=== PATIENT | female | born 1945 | race Caucasian/White ===

== ENCOUNTER → 2016-07-25 | Outpatient (CLI) | payer OTHER ==
[~2016-07-25] MED LIST: ACET-1256 PO; ASCO500T3 PO; ASPI325T39 PO; CALC500C70 PO; CALCTAB5 PO; CHOL20009 PO; CYAN500T13 PO; LEVO100T7 PO; PRLSR20 PO; ZNTT/150 PO
[2016-07-25 15:09] LABS: BLOOD UREA NITROGEN 14 mg/dl (7-18); BUN/CREATININE RATIO 19.6 (10-20); CARBON DIOXIDE 28 mmol/L (21-32); CHLORIDE 105 mmol/L (98-107); CREATININE 0.71 mg/dl (0.60-1.20); GLUCOSE 92 mg/dl (70-99); POTASSIUM 3.9 mmol/L (3.5-5.1); SODIUM 139 mmol/L (136-145)
[2016-07-25 15:15] LABS: CALCIUM 10.4 mg/dl (8.5-10.1)
[2016-07-25 15:20] LABS: ALB/GLOB RATIO 1.2 (0.9-2); ALKALINE PHOSPHATASE 95 U/L (45-117); ALT/SGPT 23 U/L (12-78); AST/SGOT 18 U/L (15-37); RHEUMATOID FACTOR < 10.0 U/mL (0-15)
[2016-07-25 16:15] LABS: LYME DISEASE AB IGG NEG (NEG); LYME DISEASE AB IGM NEG (NEG)
--- NOTE | 2016-08-02 06:48 | CODING QUERY MEDICAL NECESSITY ---
SUPPORTING DIAGNOSIS NEEDED Dr. Maria, A supporting diagnosis is required for the test/procedure performed on this patient in order for us to be reimbursed by the patient's insurance. Please provide a supporting diagnosis for the following test/procedure listed below next to the test name along with your signature. *If there is no additional diagnosis for this patient that would support the following test/procedure please document that below next to the test/procedure. Test(s)/Procedure(s) that require a supporting diagnosis: * ([id number]) VITAMIN D ASSAY DIAGNOSIS: DATE OF SERVICE: 07/25/16 Provider Signature: Date: Thank you Herman Pearson [facility] Information Management Once completed, please kindly fax back to [phone] For questions please call [phone]
== END | disposition home or self-care (01) ==
LOC: C.LABBC 11:20
PROVIDERS: ATTEND Internal Medicine
DX: M15.9 Polyosteoarthritis, unspecified (principal); M85.80 Other specified disorders of bone density and structure, unspecified site

== ENCOUNTER → 2016-07-27 | Outpatient (CLI) | payer OTHER | END | disposition home or self-care (01) | LOC: C.LABBFT 17:51 | PROVIDERS: ATTEND Internal Medicine | DX: E83.52 Hypercalcemia (principal); R19.7 Diarrhea, unspecified; R10.9 Unspecified abdominal pain ==

== ENCOUNTER → 2016-08-29 | Outpatient (CLI) | payer OTHER | END | disposition home or self-care (01) | LOC: C.MAMM 10:32 | PROVIDERS: ATTEND Internal Medicine | DX: Z78.0 Asymptomatic menopausal state (principal); M85.89 Other specified disorders of bone density and structure, multiple sites; E21.3 Hyperparathyroidism, unspecified ==

== ENCOUNTER → 2016-09-18 | Outpatient (CLI) | payer OTHER ==
--- NOTE | 2016-09-18 19:36 | DIAGNOSTIC IMAGING REPORT ---
NUCLEAR MEDICINE PARATHYROID WITH SPECT IMAGING CLINICAL HISTORY: E21.3 Hyperparathyroidism COMPARISON STUDY: No previous studies for comparison. FINDINGS: The patient was injected with 21.6 mCi of technetium 99m Cardiolite. 15 minute and 3 hour delayed imaging was performed. SPECT imaging was acquired. There are no foci of increased activity viewed as suspicious for a parathyroid adenoma. IMPRESSION: This examination fails to localize the suspected parathyroid adenoma Electronically signed by: Sonny Chance M.D. 09/18/2016 7:34 PM Dictated Date/Time: 09/18/2016 7:30 PM
== END | disposition home or self-care (01) ==
LOC: C.NUCL 14:48
PROVIDERS: ATTEND Internal Medicine Endocrinology, Diabetes & Metabolism
DX: E21.3 Hyperparathyroidism, unspecified (principal)

== ENCOUNTER → 2016-10-25 | Outpatient (CLI) | payer OTHER ==
[2016-10-25 17:38] LABS: CALCIUM 10.4 mg/dl (8.5-10.1); CREATININE 0.77 mg/dl (0.60-1.20)
== END | disposition home or self-care (01) ==
LOC: C.LABBFT 12:03
PROVIDERS: ATTEND Internal Medicine Endocrinology, Diabetes & Metabolism
DX: E03.9 Hypothyroidism, unspecified (principal); M85.80 Other specified disorders of bone density and structure, unspecified site

== ENCOUNTER → 2016-10-31 | Day surgery (SDC) | payer OTHER ==
[~2016-10-31] VITALS: Ht 152.4 cm; Wt 75.0 kg
[~2016-10-31] MED LIST changes: +ZOLEDRONIC ACID INJ 5 MG in EMPTY BAG 0 ML IV SCH
[2016-10-31 12:35] VITALS: BP 138/68; PULSE 75; TEMP 36.4; O2SAT 97; Ht 152.4 cm; Wt 75.0 kg
[2016-10-31 16:01] VITALS: BP 142/70; PULSE 72; TEMP 36.5
== END | disposition home or self-care (01) ==
LOC: C.MTU 12:10
PROVIDERS: ATTEND Internal Medicine Endocrinology, Diabetes & Metabolism
DX: M81.0 Age-related osteoporosis without current pathological fracture (principal)

== ENCOUNTER → 2016-11-20 | Outpatient (CLI) | payer OTHER ==
[~2016-11-20] MED LIST changes: -CALCTAB5 PO; -PRLSR20 PO; -ZOLEDRONIC ACID INJ 5 MG in EMPTY BAG 0 ML IV SCH
[2016-11-20 16:54] LABS: URINE APPEARANCE CLEAR (CLEAR); URINE BILIRUBIN NEG (NEG); URINE COLOR YELLOW; URINE EPITHELIAL CELL AUTO 20-30 /lpf (0-5); URINE NITRITE NEG (NEG); URINE PH 5.5 (4.5-7.5); URINE SPECIFIC GRAVITY 1.013 (1.000-1.030); UROBILINOGEN NEG (NEG); ZZUR CULT IF INDIC CLEAN CATCH NO
[2016-11-20 17:00] LABS: MANUAL MICROSCOPIC REQUIRED? NO; REVIEW REQ? NO
== END | disposition home or self-care (01) ==
LOC: C.LABBFT 10:16
PROVIDERS: ATTEND Internal Medicine Endocrinology, Diabetes & Metabolism
DX: E21.3 Hyperparathyroidism, unspecified (principal)

== ENCOUNTER → 2017-04-02 | Outpatient (CLI) | payer OTHER ==
--- NOTE | 2017-04-03 14:38 | MAMMOGRAPHY REPORT ---
BILATERAL DIGITAL SCREENING MAMMOGRAM TOMOSYNTHESIS WITH CAD: 04/02/2017 CLINICAL HISTORY: Routine screening. TECHNIQUE: Breast tomosynthesis in addition to standard 2D mammography was performed. Current study was also evaluated with a Computer Aided Detection (CAD) system. COMPARISON: Comparison is made to exams dated: 03/22/2015 mammogram, 03/27/2016 mammogram, 01/05/2014 mammogram, 06/02/2013 mammogram, 11/25/2012 mammogram, and 07/24/2011 mammogram - [facility]. BREAST COMPOSITION: The tissue of both breasts is almost entirely fatty. FINDINGS: There is a new 7 mm focal asymmetry in the lower inner anterior right breast. Although th is could represent benign fat necrosis, additional spot compression tomosynthesis views and possible ultrasound are recommended. There is a stable intramammary lymph node in the upper outer middle one third of the right breast. No other suspicious mass, architectural distortion or cluster of microcalcifications is seen. IMPRESSION: ACR BI-RADS CATEGORY 0: INCOMPLETE EVALUATION: NEED ADDITIONAL IMAGING EVALUATION The new 7 mm focal asymmetry in the lower inner anterior right breast needs additional evaluation. The patient will be called to schedule an appointment. Approximately 10% of breast cancers are not detected with mammography. A negative mammographic report should not delay biopsy if a clinically suggestive mass is present. Brandie Valdez M.D. ay/:04/02/2017 16:59:35 Er Registrar: Pasquale CHIRINOS)(Dez), [facility] letter sent: Addl Imaging 0 BI-RADS Code: ACR BI-RADS Category 0: Incomplete Evaluation: Need Additional Imaging Evaluation
== END | disposition home or self-care (01) ==
LOC: C.MAMM 13:24
PROVIDERS: ATTEND Internal Medicine
DX: Z12.31 Encounter for screening mammogram for malignant neoplasm of breast (principal); N64.9 Disorder of breast, unspecified

== ENCOUNTER → 2017-04-02 | Outpatient (CLI) | payer OTHER ==
[2017-04-02 15:26] LABS: BASO ABS # 0.06 K/uL (0-0.2); EOS % 1.4 %; EOS ABS # 0.09 K/uL (0-0.5); IG# 0.01 K/uL (0.00-0.02); LYMPH % 27.8 %; LYMPH ABS # 1.73 K/uL (1.2-3.4); MEAN CELL VOLUME 93.2 fL (80-100); MEAN CORPUSCULAR HEMOGLOBIN 31.8 pg (25-34); MEAN CORPUSCULAR HGB CONC 34.1 g/dl (32-36); MEAN PLATELET VOLUME 9.9 fL (7.4-10.4); MONO ABS # 0.56 K/uL (0.11-0.59); NEUT % 60.6 %; NEUT ABS # 3.77 K/uL (1.4-6.5); PLATELET COUNT 297 K/uL (130-400); RED CELL DISTRIBUTION WIDTH CV 13.1 % (11.5-14.5); RED CELL DISTRIBUTION WIDTH SD 44.7 fL (36.4-46.3); WHITE BLOOD COUNT 6.22 K/uL (4.8-10.8)
== END | disposition home or self-care (01) ==
LOC: C.LAB1850 14:04
PROVIDERS: ATTEND Physician Assistant
DX: L65.9 Nonscarring hair loss, unspecified (principal)

== ENCOUNTER → 2017-04-09 | Outpatient (CLI) | payer OTHER ==
--- NOTE | 2017-04-09 09:12 | DIAGNOSTIC IMAGING REPORT ---
R KNEE 1 OR 2 VIEWS ROUTINE CLINICAL HISTORY: Right knee pain and following recent fall. COMPARISON: Right knee radiographs January 25, 2016. FINDINGS: No acute fracture is identified. A small right knee joint effusion is noted. There is marked medial compartment joint space narrowing with moderate osteophytosis. There is also patellofemoral compartment joint space narrowing with osteophytosis. IMPRESSION: 1. No acute fracture. 2. Small right knee joint effusion. 3. Severe medial compartment osteoarthritis and moderate patellofemoral compartment osteoarthritis. Electronically signed by: Herb Shelton M.D. 04/09/2017 9:11 AM Dictated Date/Time: 04/09/2017 9:09 AM
== END | disposition home or self-care (01) ==
LOC: C.RADBC 08:49
PROVIDERS: ATTEND Family Medicine Adult Medicine
DX: M25.561 Pain in right knee (principal); M17.11 Unilateral primary osteoarthritis, right knee

== ENCOUNTER → 2017-04-17 | Outpatient (CLI) | payer OTHER ==
[~2017-04-17] MED LIST changes: +RANI150T85 PO; -ZNTT/150 PO
--- NOTE | 2017-04-17 13:30 | MAMMOGRAPHY REPORT ---
UNILATERAL RIGHT DIGITAL DIAGNOSTIC MAMMOGRAM TOMOSYNTHESIS AND TARGETED RIGHT ULTRASOUND: 04/17/2017 CLINICAL HISTORY: 71-year-old woman called back from screening mammography for a focal asymmetry in t he lower inner anterior right breast. Patient denies any known trauma of the right breast prior to t he screening mammogram. No visible skin bruising or lesions are identified. TECHNIQUE: Spot compression right CC and MLO tomosynthesis images were obtained. COMPARISON: Comparison is made to exams dated: 04/02/2017 mammogram, 03/27/2016 mammogram, 03/22/2015 m ammogram, 01/05/2014 mammogram, 06/02/2013 mammogram, and 12/02/2012 ultrasound - [facility]. BREAST COMPOSITION: The tissue of the right breast is almost entirely fatty. FINDINGS: The spot compression views of the right lower inner quadrant demonstrate a mixed density f ocal asymmetry measuring 5.8 x 4.9 x 3.4 mm, in the approximate 2:00 to 3:00 anterior right breast. No associated architectural distortion or calcification. Further characterization with ultrasound wa s performed. Targeted ultrasound performed in the right lower inner quadrant demonstrates a mixed echogenicity hyp erechoic and height both to isoechoic solid appearing mass measuring 7.9 x 4.8 x 7.8 mm. No signific ant increased vascularity. Although this could represent fat necrosis it is indeterminate and given no clinical history of trauma definitive characterization with ultrasound guided core biopsy is recom mended. IMPRESSION: ACR BI-RADS CATEGORY 4: SUSPICIOUS, TARGETED ULTRASOUND ACR BI-RADS CATEGORY 4: SUSPICIO US A new, persistent mixed density focal asymmetry in the lower inner anterior right breast corresponds with a mixed echogenicity solid-appearing 7.9 mm mass on ultrasound identified in the 3:[address] Definitive characterization with ultrasound guided core needle biopsy is recommended. These results and recommend addition were discussed with the patient at the time of the exam. She te ntatively scheduled the right breast biopsy prior to leaving our department. Approximately 10% of breast cancers are not detected with mammography. A negative mammographic report should not delay biopsy if a clinically suggestive mass is present. Brandie Valdez M.D. ay/:04/17/2017 11:55:52 Criminal Research Specialist: Ruth Ann SUTTON(Ary)(Dez), [facility] letter sent: Abnormal 4/5 BI-RADS Code: ACR BI-RADS Category 4: Suspicious Ultrasound BI-RADS: ACR BI-RADS Category 4: Suspici ous
== END | disposition home or self-care (01) ==
LOC: C.MAMM 11:02
PROVIDERS: ATTEND Internal Medicine
DX: N64.89 Other specified disorders of breast (principal); N63.12 Unspecified lump in the right breast, upper inner quadrant; Z91.040 Latex allergy status

== ENCOUNTER → 2017-05-14 | Outpatient (CLI) | payer OTHER ==
--- NOTE | 2017-05-14 11:05 | Discharge Instructions ---
Discharge Instructions Procedure Procedure Date: May 14, 2017. Reason for visit: Right Mass. Discharge Discharge Date: May 14, 2017. Discharge Diagnosis: post right breast ultrasound guided core biopsy Medications Restart Stopped Medication(s): May continue with Aspirin tomorrow as per usual Instructions Activity Recommendations: Additional Limitations (see below) Return to School/Work: no limitations Recommended Home Diet: No Limitations Provider Instructions: ACTIVITY RECOMMENDATIONS: * No lifting, pushing, pulling or exercising the affected side for three days. RETURN TO SCHOOL/WORK: * You may return to work/school after the procedure, but do not perform any strenuous activities for 24 to 48 hours. MEDICATIONS: * Tylenol (two 325 mg) every four to six hours if needed for mild pain (if not allergic to Tylenol). DIET: * Resume previous diet. SPECIAL CARE INSTRUCTIONS: * Keep biopsy site dry for 24 hours. May shower after 24 hours, but do not soak (bathe) incision. * May remove Tegaderm (plastic patch) tomorrow AFTER showering. * Leave the steri-strips on for one week. Allow the steri-strips to fall off by themselves. If not off after one week, you may remove them. You may place a Bandaid crosswise over the strips, if desired. * Apply ice 10 minutes on and 10 minutes off as needed. * Wear a bra at bedtime to sleep more comfortably for 2-3 days. * Your referring physician should have the results after approximately 5 to 7 business days. * Call for unusual bleeding, fever, drainage, etc or if you have any questions call [phone] during normal business hours or after hours call Dr Valdez, . FOLLOW UP VISIT: Follow-up with Referring Physician as scheduled. Allergies Coded Allergies: Penicillins (Verified Allergy, Severe, RESP DIFFICULTY, 10/31/16) Morphine (Verified Allergy, Mild, ITCHING, 10/31/16) Prednisone (Verified Adverse Reaction, Intermediate, HTN, 10/31/16) Bacitracin (Verified Adverse Reaction, Unknown, DOESN'T HELP, 10/31/16) Neomycin (Verified Adverse Reaction, Unknown, DOESN'T HELP, 10/31/16) Polymyxin B (Verified Adverse Reaction, Unknown, DOESN'T HELP, 10/31/16) Kaushal Aleman Recommendations: Call your doctor if: * Temperature above 101 degrees * Pain not relieved by pain medicine ordered * There is increased drainage or redness from any incision * You have any unanswered questions or concerns. Your Doctors Instructions noted above were prepared by provider Brandie Valdez. Patient Signature Section: Patient Instructions Signature Page Veronica Cerdaen Patient (or Guardian) Signature/Date: I have read and understand the instructions given to me by my caregivers. Caregiver/RN/Doctor Signature/Date: The above-named patient and/or guardian has received patient instructions on this date. + Original Patient Signature Page (only) stays with chart. Please make copy for patient.
--- NOTE | 2017-05-14 15:39 | MAMMOGRAPHY REPORT ---
ULTRASOUND GUIDED BIOPSY RIGHT BREAST: 05/14/2017 CLINICAL HISTORY: Subtle mixed density/mixed echogenicity solid-appearing 7.9 mm mass in the 3:00 rig ht breast. Patient presents for ultrasound-guided core needle biopsy. COMPARISON: Comparison is made to exams dated: 04/17/2017 mammogram, 04/02/2017 mammogram, 04/17/2017 ult rasound, and 03/22/2015 mammogram - [facility]. PATIENT CONSENT: The procedure, risks and benefits were discussed with the patient and informed conse nt was obtained both verbally and in writing. Specific risks to this procedure include: bleeding, in fection, puncture of adjacent structure, nontarget biopsy, sampling error, pain, metal allergy and me dication reaction. PROCEDURE DESCRIPTION: A time out was performed and the right breast was agreed as the site of biopsy . The skin was prepped and draped in the usual sterile fashion. The subtle, mixed echogenicity 7.9 mm solid-appearing mass in the 3:00 right breast was chosen as the target for biopsy. Subcutaneous and intraparenchymal 1% buffered lidocaine, with and without epinephrine, was administered as local anest hesia. A skin incision was made. Through the incision, 5 samples were taken with a 14 gauge Achieve biopsy device. A ribbon shaped metallic marker was placed at the biopsy site. Hemostasis was achieved after manual compression. The patient tolerated the procedure well and there was no immediate compli cation. The samples were sent to the pathology department in an appropriately labeled container. Postprocedure right CC and ML tomosynthesis images were obtained. There is a new ribbon-shaped biops y marker clip in the 3:00 anterior right breast, at the site of the biopsied mixed density mammograph ic mass, corresponding to the subtle mixed echogenicity mass seen on ultrasound. No significant post biopsy hematoma identified. Pathology is pending. IMPRESSION: ULTRASOUND GUIDED BIOPSY Status post ultrasound-guided core biopsy of a subtle mixed density/mixed echogenicity 7.9 mm mass in the 3:00 right breast, with biopsy marker clip placed at the site. The patient will receive notification of the biopsy results from her referring physician. Brandie Valdez M.D. ay/:05/14/2017 11:15:57 Leather Splitter: Ruth Ann CHIRINOS)(Dez), [facility]
--- NOTE | 2017-05-14 15:42 | MAMMOGRAPHY REPORT ---
UNILATERAL RIGHT DIGITAL DIAGNOSTIC MAMMOGRAM TOMOSYNTHESIS: 05/14/2017 CLINICAL HISTORY: Status post ultrasound-guided core biopsy of a subtle mixed echogenicity mass in th e 3:00 right breast. Please refer to the report from right breast ultrasound-guided core biopsy performed at the same time for full detail. IMPRESSION: POST PROCEDURE IMAGING FOR MARKER PLACEMENT Please refer to the report from right breast ultrasound-guided core biopsy performed at the same time for full detail. Approximately 10% of breast cancers are not detected with mammography. A negative mammographic report should not delay biopsy if a clinically suggestive mass is present. Brandie Valdez M.D. ay/:05/14/2017 11:06:37 Tar Roofer: Ruth Ann SUTTON(R)(M), [facility] BI-RADS Code: Post Procedure Imaging For Marker Placement
== END | disposition home or self-care (01) ==
LOC: C.MAMM 10:21
PROVIDERS: ATTEND Internal Medicine
DX: N63.10 Unspecified lump in the right breast, unspecified quadrant (principal); N64.1 Fat necrosis of breast

== ENCOUNTER → 2017-05-24 | Outpatient (CLI) | payer OTHER | END | disposition home or self-care (01) | LOC: C.LAB1850 10:17 | PROVIDERS: ATTEND Internal Medicine Endocrinology, Diabetes & Metabolism | DX: E03.9 Hypothyroidism, unspecified (principal); E21.3 Hyperparathyroidism, unspecified; M79.606 Pain in leg, unspecified; E83.52 Hypercalcemia ==

== ENCOUNTER → 2017-07-19 | Outpatient (CLI) | payer OTHER | END | disposition home or self-care (01) | LOC: C.LABBFT 15:14 | PROVIDERS: ATTEND Internal Medicine | DX: R39.9 Unspecified symptoms and signs involving the genitourinary system (principal) ==

== ENCOUNTER → 2017-08-01 | Outpatient (CLI) | payer OTHER ==
[2017-08-01 12:50] LABS: ALBUMIN 3.8 gm/dl (3.4-5.0); ALKALINE PHOSPHATASE 84 U/L (45-117); ALT/SGPT 21 U/L (12-78); AST/SGOT 16 U/L (15-37); BLOOD UREA NITROGEN 14 mg/dl (7-18); CALCIUM 9.5 mg/dl (8.5-10.1); CARBON DIOXIDE 27 mmol/L (21-32); CREATININE 0.84 mg/dl (0.60-1.20); GLUCOSE 69 mg/dl (70-99); POTASSIUM 3.9 mmol/L (3.5-5.1); SODIUM 139 mmol/L (136-145); TOTAL PROTEIN 7.7 gm/dl (6.4-8.2)
== END | disposition home or self-care (01) ==
LOC: C.LABBFT 09:28
PROVIDERS: ATTEND Urology
DX: R31.0 Gross hematuria (principal); L65.9 Nonscarring hair loss, unspecified

== ENCOUNTER → 2017-10-04 | Outpatient (CLI) | payer OTHER ==
[~2017-10-04] MED LIST changes: -CALC500C70 PO
--- NOTE | 2017-10-04 12:04 | DIAGNOSTIC IMAGING REPORT ---
CHEST 2 VIEWS ROUTINE CLINICAL HISTORY: PAT preoperative evaluation COMPARISON STUDY: 05/01/2015 FINDINGS: Chronic fullness of the central pulmonary vasculature. Lungs are clear. Diaphragms are smooth. Moderate degenerative change thoracic spine. IMPRESSION: Chronic change. No acute process. The above report was generated using voice recognition software. It may contain grammatical, syntax or spelling errors. Electronically signed by: Eren Grady M.D. 10/04/2017 12:03 PM Dictated Date/Time: 10/04/2017 11:52 AM
== END | disposition home or self-care (01) ==
LOC: C.CPL 11:01
PROVIDERS: ATTEND Urology
DX: Z01.811 Encounter for preprocedural respiratory examination (principal); Z01.812 Encounter for preprocedural laboratory examination

== ENCOUNTER → 2017-10-10 | Outpatient (CLI) | payer OTHER ==
[~2017-10-10] MED LIST changes: +CIPR1TAB10 PO; +OXYC7.5T65 PO; +PHEN-876 PO; +fluconazole
--- NOTE | 2017-10-10 10:55 | DIAGNOSTIC IMAGING REPORT ---
MR ANGIOGRAM OF THE BRAIN CLINICAL HISTORY: Colonic facial hemispasm. COMPARISON STUDY: CT of the brain dated 07/17/2015.. TECHNIQUE: 3-D [id number] MR angiography of the intracranial circulation is performed. 3-D tumble views are created and assessed. IV contrast was not administered for this examination. FINDINGS: The internal carotid arteries are widely patent bilaterally, as are the anterior and middle cerebral arteries. The vertebrobasilar system and posterior cerebral arteries are widely patent. The vertebral arteries are codominant. There is no aneurysm, high-grade stenosis, or focal vessel cutoff seen throughout the intracranial circulation. The brain parenchyma is normal as visualized. IMPRESSION: Unremarkable MR angiogram of the brain. Electronically signed by: Catarino Ha M.D. 10/10/2017 10:53 AM Dictated Date/Time: 10/10/2017 10:50 AM
== END | disposition home or self-care (01) ==
LOC: C.MRI 10:13
PROVIDERS: ATTEND Internal Medicine
DX: G51.3 Clonic hemifacial spasm (principal)

== ENCOUNTER 2017-10-18 09:26 | Day surgery (SDC) | payer OTHER ==
[2017-10-01 15:57] VITALS: BMI 32.0
--- NOTE | 2017-10-04 09:54 | PAT Medication Instructions ---
Service Date Oct 04, 2017. Current Home Medication List Acetaminophen (Tylenol), 1 TAB PO HS Ascorbic Acid (Vitamin C), 500 MG PO QAM Aspirin (Aspirin Ec), 325 MG PO QAM Cholecalciferol (Vitamin D), 2,000 UNITS PO BID Cyanocobalamin (Vitamin B12 500MCG), 500 MCG PO QAM Levothyroxine Sodium (Levothyroxine Sodium), 100 MCG PO 6XWK Levothyroxine Sodium (Levothyroxine Sodium), 50 MCG PO JEANNETTE Ranitidine (Zantac), 150 MG PO HS Medication Instructions For Your Scheduled Surgery - Check with surgeon and prescribing physician for instructions: Aspirin (Aspirin Ec), 325 MG PO QAM - Hold the following medications the morning of surgery: Ascorbic Acid (Vitamin C), 500 MG PO QAM Cholecalciferol (Vitamin D), 2,000 UNITS PO BID Cyanocobalamin (Vitamin B12 500MCG), 500 MCG PO QAM - Take the following medications the morning of surgery with a sip of water: Levothyroxine Sodium (Levothyroxine Sodium), 100 MCG PO 6XWK Levothyroxine Sodium (Levothyroxine Sodium), 50 MCG PO SUNDAY - Take the following medications as scheduled the night before surgery: Ranitidine (Zantac), 150 MG PO HS Cholecalciferol (Vitamin D), 2,000 UNITS PO BID Acetaminophen (Tylenol), 1 TAB PO HS If you have any questions please call us at [phone] or [phone] or [phone]
[2017-10-04 11:16] VITALS: BMI 33.0
[~2017-10-18] VITALS: Ht 149.9 cm; Wt 73.8 kg
[~2017-10-18 09:26] MED LIST changes: -CIPR1TAB10 PO; +CIPROFLOXACIN / D5W 400 MG IV SCH; +LACTATED RINGER'S 1000ML 1,000 ML IV SCH; -OXYC7.5T65 PO; -PHEN-876 PO; -fluconazole
[2017-10-18] MEDS ORDERED: ATROPINE SULFATE 0.1 MG/ML 5ML SYR IV PRN (09:30)
[2017-10-18] MEDS ORDERED: EpHEDrine SULFATE INJ 50 MG/ML AMP IV PRN (09:30)
[2017-10-18] MEDS ORDERED: FENTANYL CITRATE INJ 50 MCG/1 ML 2 ML VIAL IV PRN (09:30)
[2017-10-18] MEDS ORDERED: ONDANSETRON INJ 2 MG/ML 2 ML VIAL IV PRN (09:30)
[2017-10-18] MEDS ORDERED: PHENYLEPHRINE 100MCG/ML 5ML SYR IV PRN (09:30)
[2017-10-18] MEDS ORDERED: fluconazole (10:01)
[2017-10-18 10:04] VITALS: BP 128/76; PULSE 73; TEMP 36.5; O2SAT 97; Ht 149.9 cm; Wt 73.8 kg
--- NOTE | 2017-10-18 10:38 | History & Physical Bridge Note ---
H&P Re-Evaluation Bridge Note: I have examined the patient, reviewed the History & Physical and in the interval since the performance of the History & Physical I have noted the following changes of clinical significance: No changes noted
--- NOTE | 2017-10-18 10:39 | Discharge Instructions ---
Discharge Instructions Date of Service Oct 18, 2017. Admission Reason for Admission: Stones Discharge Discharge Diagnosis / Problem: Stone Discharge Goals Goal(s): Decrease discomfort, Improve function Activity Recommendations Activity Limitations: resume your previous activity Lifting Limitations: gradually increase as tolerated Exercise/Sports Limitations: gradually increase as tolerated . Instructions / Follow-Up Instructions / Follow-Up May have blood in urine. may have pelvic discomfort. Call if any fevers or chills. Current Hospital Diet Patient's current hospital diet: Discharge Diet Recommended Diet: Regular Diet Procedures Procedures Performed: Cystoscopy and left ureteroscopy. Pending Studies Studies pending at discharge: no Medical Emergencies . Who to Call and When: Medical Emergencies: If at any time you feel your situation is an emergency, please call 911 immediately. . Non-Emergent Contact Non-Emergency issues call your: Primary Care Provider, Urologist Call Non-Emergent contact if: you have a fever, temperature is above 101, temperature is above 101.5, your pain is not controlled, your pain is worsening , your pain is unusual for you . . "Provider Documentation" section prepared by Gael Skinner. .
[2017-10-18] MEDS ORDERED: MIDAZOLAM HCL 1 MG/ML 2ML VIAL ONE (10:46)
[2017-10-18] MEDS ORDERED: FENTANYL CITRATE INJ 50 MCG/1 ML 2 ML VIAL ONE (10:46)
[2017-10-18] MEDS ORDERED: Cysto-Conray II 17.2% 250ML BOTTLE ONE (11:05)
[2017-10-18] MEDS ORDERED: CIPR1TAB10 PO (11:10)
[2017-10-18] MEDS ORDERED: OXYC7.5T65 PO (11:10)
[2017-10-18] MEDS ORDERED: PHEN-876 PO (11:10)
[2017-10-18] MEDS ORDERED: OXYCODONE/ACETAMINOPHEN 7.5-325 TAB PO PRN (11:15)
[2017-10-18] MEDS ORDERED: ONDANSETRON INJ 2 MG/ML 2 ML VIAL ONE (11:33)
[2017-10-18] MEDS ORDERED: PHENYLEPHRINE 100MCG/ML 5ML SYR ONE (11:33)
[2017-10-18] MEDS ORDERED: LIDOCAINE HCL 2% 2 ML VIAL (20MG/ML) ONE (11:33)
[2017-10-18] MEDS ORDERED: PROPOFOL IV EMULSION 10 MG/ML 20 ML VIAL ONE (11:33)
[2017-10-18] MEDS ORDERED: BELLADONNA/OPIUM SUPP 60 MG SUPP PR ONE (11:34)
--- NOTE | 2017-10-18 11:57 | [facility] Operative Report ---
Operative Report Operative Date Oct 18, 2017. Pre-Operative Diagnosis Left Renal colic, Ureteral Stone, Hydronephrosis Post-Operative Diagnosis Same. Procedure(s) Performed Cystoscopy and left ureteroscopy, ureteral dilation, retrograde pyelogram, stent. 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 No stone identified. Specimens None Drains 6 Fr Multilength Anesthesia Type General Complication(s) none Disposition Recovery Room / PACU Indications Patient with stone on CT and continued discomfort. Repeat imaging shows likely stone vs calcification in left ureter. Risks and benefits discussed. Description of Procedure Patient was consented and brought back to the operating room. Patient was placed under anesthesia in the supine position and moved to the dorsal lithotomy position. Patient was prepped and draped in the regular sterile fashion. A time out was completed. A 30degree Cystoscope was placed into the bladder and the entire bladder was examined. The UO's were identified. The UO was cannulized with a catheter and a retrograde pyelogram was completed. A significant stricture was noted at the distal ureter. A wire was then placed. A rigid ureteroscope was selected and teken into the bladder and into the Left UO. The wire appeared to be in good position and the scope was able to be advanced to the strictured area. It was able to be by passed. The scope was taken past the stricture up to mid/proximal ureter. No stones or masses were noted. A second safety wire was placed. A ureteral access sheath was placed to dilate the tract. The strictured area was dilated well. The second safety wire was noted to be in place. The flexible ureteroscope was taken into the ureter. The entire ureter and renal pelvis were examined. No stone, masses, lesions, or other areas of concern were noted. The entire area was once again examined. No fragments or areas of concern were noted. The scope was slowly removed with the wire left in place. Contrast was placed through the scope for a pyelogram to assist in stent placement. The entire ureter was examined as the scope was slowly removed. No obstructions or other areas of concern were noted. With the wire in place, a 6 Fr Double J stent was placed. It was confirmed with fluoroscopy. With the stent in place, the bladder was emptied. The scope was removed. The patient was cleaned, aroused from anesthesia, and transferred to the pacu in stable condition having tolerated the procedure well with no complications. I was present and participated in all aspects of the procedure. The patient will be monitored in the PACU until transferred. I attest to the content of the Intraoperative Record and any orders documented therein. Any exceptions are noted below.
[2017-10-18 12:45] VITALS: BP 135/81; PULSE 59; TEMP 36.4; O2SAT 99
--- NOTE | 2017-10-18 13:01 | Anesthesiology Progress Note ---
Anesthesia Post Op Note Date & Time Oct 18, 2017 at 13:01 Vital Signs Pain Intensity: 0 Vital Signs Past 12 Hours Date Time Temp Pulse Resp B/P (MAP) Pulse Ox O2 Delivery O2 Flow Rate FiO2 10/18/17 12:40 36.4 54 16 139/62 100 Room Air 10/18/17 12:30 64 14 142/59 97 Room Air 10/18/17 12:20 58 15 141/66 100 Room Air 10/18/17 12:10 55 15 138/63 100 Oxymask 8 10/18/17 12:01 36.7 73 16 103/82 100 Oxymask 8 10/18/17 10:04 36.5 73 16 128/76 (93) 97 Room Air Notes Mental Status: alert / awake / arousable, participated in evaluation Pt Amnestic to Procedure: Yes Nausea / Vomiting: adequately controlled Pain: adequately controlled Airway Patency, RR, SpO2: stable & adequate BP & HR: stable & adequate Hydration State: stable & adequate Anesthetic Complications: no major complications apparent
[2017-10-18 13:15] VITALS: BP 133/62; PULSE 58; O2SAT 100
[2017-10-18 13:35] VITALS: BP 139/64; PULSE 59; TEMP 36.5; O2SAT 100
--- NOTE | 2017-10-18 14:08 | DIAGNOSTIC IMAGING REPORT ---
RETROGRADE INCLUDES KUB CLINICAL HISTORY: 72 years-old Female presenting with LASER LITHO AND STENT PLACEMENT. TECHNIQUE: 6 fluoroscopic image(s) recorded as part of an intraoperative procedure. COMPARISON: Plain radiograph from 09/24/2017. FINDINGS/IMPRESSION: A cystoscope projects over the pelvis. The bladder was opacified with contrast. A catheter was introduced into the urinary bladder and left ureter. The guidewire was extended into the upper pole calyx of the left renal collecting system. The left urinary collecting system was opacified with contrast and nondilated. A left ureteral stent was placed. Please see surgical report for further details. Dose area product (mGy.m^2): [id number]. Fluoroscopy time: 86.7 seconds. Number or time of fluoroscopic spot images: 0. Electronically signed by: Teodoro Garcia M.D. 10/18/2017 2:07 PM Dictated Date/Time: 10/18/2017 2:06 PM
== END 2017-10-18 13:45 | disposition home or self-care (01) ==
LOC: C.ACU 09:26
PROVIDERS: ATTEND Urology
DX: N20.0 Calculus of kidney (principal); N20.1 Calculus of ureter; E03.9 Hypothyroidism, unspecified; J45.909 Unspecified asthma, uncomplicated; Z68.33 Body mass index [BMI] 33.0-33.9, adult; E66.9 Obesity, unspecified; Z86.73 Personal history of transient ischemic attack (TIA), and cerebral infarction without residual deficits; Z86.718 Personal history of other venous thrombosis and embolism; Z91.040 Latex allergy status; Z79.899 Other long term (current) drug therapy; Z79.82 Long term (current) use of aspirin; Z88.0 Allergy status to penicillin; Z88.1 Allergy status to other antibiotic agents; Z88.5 Allergy status to narcotic agent; Z88.8 Allergy status to other drugs, medicaments and biological substances

== ENCOUNTER 2020-10-04 08:03 | Observation (INO) ==
--- NOTE | 2020-09-02 10:32 | PAT Medication Instructions ---
Medication Instructions Date of Service September 02, 2020 Home Medications Medication Instructions Recorded omeprazole 20 mg capsule,delayed 20 mg PO BID #180 cap 05/26/20 release levothyroxine 100 mcg tablet 100 mcg PO .COMPLEX #90 tab 07/06/20 acetaminophen 500 mg PO HS ascorbic acid (vitamin C) 500 mg PO QAM cholecalciferol (vitamin D3) 2,000 unit PO BID cyanocobalamin (vitamin B-12) 500 mcg PO QAM loratadine 10 mg PO QAM calcium carbonate [Calcium 500] 500 mg PO QAM metoprolol succinate 12.5 mg PO BID omeprazole 20 mg capsule,delayed release 20 mg PO BID levothyroxine 100 mcg tablet 100 mcg PO .COMPLEX aspirin 81 mg PO QAM montelukast 10 mg PO HS DO NOT take the morning of surgery ascorbic acid (vitamin C) 500 mg PO QAM cholecalciferol (vitamin D3) 2,000 unit PO BID cyanocobalamin (vitamin B-12) 500 mcg PO QAM loratadine 10 mg PO QAM calcium carbonate [Calcium 500] 500 mg PO QAM Take morning of surgery With a small sip of water, OTHERWISE NOTHING TO EAT OR DRINK AFTER MIDNIGHT: metoprolol succinate 12.5 mg PO BID omeprazole 20 mg capsule,delayed release 20 mg PO BID levothyroxine 100 mcg tablet 100 mcg PO .COMPLEX aspirin 81 mg PO QAM (continue as normal unless told otherwise by surgeon) Take evening before surgery acetaminophen 500 mg PO HS cholecalciferol (vitamin D3) 2,000 unit PO BID metoprolol succinate 12.5 mg PO BID omeprazole 20 mg capsule,delayed release 20 mg PO BID montelukast 10 mg PO HS Other Notes If you have any questions please call us at [phone] or [phone] or [phone] or [phone]
--- NOTE | 2020-09-06 13:06 | Anesthesiology Consultation ---
Date of Service September 06, 2020 Assessment & Plan (1) Encounter for pre-operative examination: - Cardiac hx: Patient reports upcoming cardiac MRI (for pulmonary artery aneurysm surveillance) and cardiology appt. Awaiting cardiac MRI findings and cardiology office visit note. - PCP office visit (07/27/20): "Localized swelling, mass and lump, lower limb.. Recommended a venous doppler to r/o a DVT and she agreed. Further plan pending results. If no DVT, we did discuss just giving it some time to see if it will go away on its own which she would prefer." > LLE ultrasound done 07/27/20 with no evidence of DVT. - COVID screening: Per assessment on 09/06: Travel screen- Returned from travel to [place] 09/02. Travel was by car. No large crowds. Wears PPE/follows COVID precaution guidelines. Patient vaccinated. Patient is traveling to [place] and returning 09/16. Return from travel > 2 weeks prior to preop COVID testing. No known COVID-19 positive contacts or current COVID-19 related symptoms. Surgeon arranging preop COVID testing (being done at [facility] 09/06). Awaiting results. - Hx back issues: Patient reports chronic back pain/issues including spinal stenosis/"curvature" > Discussed GA vs. SAB. Patient states she does not want spinal. Advised patient that this will be discuss options further AM DOS. Chart Review Chart Review: Patient seen in Pre Admission Testing Teaching & Discussion Pre-Anesthesia Teaching/Discussion Notes: Instructed NPO after midnight before surgery,except medications with 15 cc of water. Medication instructions provided according to the [facility] guidelines. History Surgery Operation Date: 10/04/20 07:30 Proposed Procedures p Left Total Knee Arthroplasty - Melquiades Swartz MD Height/Weight Height: 5 ft Weight: 79.8 kg Allergies Allergy/AdvReac Type Severity Reaction Status Date / Time latex Allergy Severe Rash, Verified 09/06/20 12:54 redness Penicillins Allergy Severe Respiratory Verified 09/06/20 12:54 difficulties morphine Allergy Mild Itching, Verified 09/06/20 12:54 hives adhesive Allergy Unknown Redness, Verified 09/06/20 12:54 itchiness prednisone AdvReac Intermediate Elevated Verified 09/06/20 12:54 BP, hives bacitracin AdvReac Unknown "Doesn't Verified 09/06/20 12:54 help" neomycin AdvReac Unknown "Doesn't Verified 09/06/20 12:54 help" polymyxin B AdvReac Unknown "Doesn't Verified 09/06/20 12:54 help" Medications Home Medications Medication Instructions Recorded Confirmed Last Taken acetaminophen 500 mg PO HS 02/28/18 08/31/20 02/28/18 ascorbic acid (vitamin C) 500 mg PO QAM 02/28/18 08/31/20 02/28/18 cholecalciferol (vitamin D3) 2,000 unit PO BID 02/28/18 08/31/20 02/28/18 cyanocobalamin (vitamin B-12) 500 mcg PO QAM 02/28/18 08/31/20 02/28/18 loratadine 10 mg PO QAM 02/28/18 08/31/20 02/28/18 calcium carbonate [Calcium 500] 500 mg PO QAM 04/07/19 08/31/20 Unknown metoprolol succinate 12.5 mg PO BID 04/07/19 08/31/20 Unknown omeprazole 20 mg capsule,delayed 20 mg PO BID #180 cap 05/26/20 08/31/20 Unknown release levothyroxine 100 mcg tablet 100 mcg PO .COMPLEX #90 tab 07/06/20 08/31/20 Unknown aspirin 81 mg PO QAM 08/31/20 08/31/20 Unknown montelukast 10 mg PO HS 08/31/20 08/31/20 Unknown Past Medical History Medical History Asthma Chronic back pain Diverticular disease History of DVT (deep vein thrombosis) [place] (2013) > post-op History of kidney stones Hypertension Obesity Ocular migraine Osteoarthritis Osteoporosis Pulmonary artery aneurysm Under surveillance by [facility] Cardiology, upcoming cardiac MRI on 09/07. Spinal stenosis Vertigo Exercise / Class Metabolic Activity III < 4 Walking/Shop/Light housework (one FS (no CP, some SOB)) Past Family History Family History Brother Lung cancer Son Diabetes Father Stroke Mother Heart disease Hypertension Myocardial infarction Unknown Allergies Asthma Deafness Denies family history of Ovarian cancer Prostate cancer Breast cancer Colorectal cancer Past Surgical History Surgical History H/O hysterectomy with oophorectomy H/O parathyroidectomy History of bowel resection History of cardiac catheterization 2019 > no angiographic evidence of CAD History of cataract surgery History of colonoscopy History of cystoscopy History of dilation and curettage History of ERCP History of hernia repair History of non-cataract eye surgery History of removal of ureteral stent History of ureter stent Hx of cholecystectomy Hx of tubal ligation Past Anesthesia History Other Daughter/mother with surgical/anesthesia problems but patient does not know any details. Does not believe they were significant issues. Denies family hx of MH/Pseudocholinesterase deficiency. "Slow to wake" with multiple surgeries. Post-op diffuse rash after parathyroid surgery. No definitive etiology found. History of PONV No Hx of PONV and No Hx of Motion Sickness Social History Smoking Status: Never smoker Do You Dip or Chew Tobacco: No Hx Alcohol Use: No Hx Substance Use: No substance use type: does not use Review of Systems Patient denies chest pain, shortness of breath, fever, chills, cough, wheezing, palpitations. Physical Exam Vital Signs VITALS BP 143/76 P 67 TEMP 98.3 SP02 97%RA RESP 16 PHYSICAL Mildly decreased cervical extension range of motion (2/2 cervicalgia). Full TMJ range of motion. TMD 3 finger breaths Mallampati Score 3 Dentition: intact, +crowns (upper front), +implants (sides) Lungs: clear throughout to auscultation Cardiac: regular rate and rhythm, III/ systolic murmur Spine: kyphosis Carotid arteries: negative bruit Extremities: no edema Lab Results Anesthesia Preop Results Results Anesthesia Widget: WBC 5.89 K/uL (4.8-10.8) 09/06/20 Hgb 13.3 g/dL (12.0-16.0) 09/06/20 Hct 39.7 % (37-47) 09/06/20 Plt 304 K/uL (130-400) 09/06/20 Na 139 mmol/L (136-145) 09/06/20 K 4.7 mmol/L (3.5-5.1) 09/06/20 Cl 107 mmol/L (98-107) 09/06/20 CO2 28 mmol/L (21-32) 09/06/20 BUN 17 mg/dl (7-18) 09/06/20 Creat 0.84 mg/dl (0.6-1.2) 09/06/20 Glucose Level 95 mg/dl (70-99) 09/06/20 PT 9.8 Seconds (9.0-12.0) 09/06/20 PTT 26.3 Seconds (21.0-31.0) 09/06/20 INR 1.0 (0.9-1.1) 09/06/20 Blood Type O Positive 09/06/20 Antibody Screen NEGATIVE 09/06/20 Testing Electrocardiogram Date: 09/26/19 NSR at 60bpm. Somewhat poor septal R waves. NS TWA. Otherwise normal ECG. No significant change compared to 08/13/18 per director of investigations review. Chest X-Ray Date: 09/06/20 The cardiomediastinal silhouette is unremarkable. There is marked enlargement of the pulmonary trunk. This is similar to previous. There is bibasilar scar ring/atelectasis. No airspace consolidation or pleural effusion is identified. There is no pneumothorax. The skeletal structures are osteopenic. The bony thorax appears intact. Degenerative change and hyperkyphosis are noted in the thoracic spine. Cholecystectomy clips are seen in the right upper quadrant. IMPRESSION: No active disease in the chest. Echocardiogram Date: 01/05/17 EF 60 to 65%. No regional wall motion abnormalities. Moderate LAD. Trileaflet aortic valve with mild to moderate AR. Mild pulmonic stenosis with mild CA. Mild TR. Normal pulmonary pressures. Cardiac Catheterization Date: 08/13/18 No angiographic evidence of epicardial coronary artery disease. Mildly elevated right heart filling pressures. Mildly elevated pulmonary vascular resistance. There was a 20 mmHg peak-peak gradient across RVOT and/or pulmonic valve.
--- NOTE | 2020-10-02 11:19 | History and Physical Report ---
CHIEF COMPLAINT: Bilateral knee pain and discomfort, right side greater than the left. 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 She has a 4-5 year history of bilateral knee pain and discomfort that has gradu ally gotten worse over time. It vacillates from which knee hurts her the most. She has been followe d by Dr. Montelongo at [facility]. She has been through extensive conservative treatment , which has not really helped much at all. She has had multiple shots, which helped very temporarily . She has had some reaction to the steroid as well. She was actually scheduled for left knee surger y initially, but now has decided to proceed with right as it is bothering her more and giving out mor e regularly. Pain is constant. The more she walks, the more it hurts. PAST MEDICAL HISTORY: Significant for: 1. Pulmonary artery aneurysm, followed by Dr. Aldridge at [place] and stable. 2. Mitral valve prolapse. 3. Hypothyroidism. 4. History of DVT in the upper extremity without any known clotting disorder. 5. Asthma. PAST SURGICAL HISTORY: Includes 1. Hysterectomy. 2. Cholecystectomy. 3. Kidney stones. 4. Herniorrhaphy. 5. Bowel surgery. 6. Parathyroid surgery. ALLERGIES: PREDNISONE, PENICILLIN, POLYSPORIN, AND NEOSPORIN. SOCIAL HISTORY: A 74-year-old white female. She is . Four children. She does not drink. FAMILY HISTORY: No heart disease and blood clots. REVIEW OF SYSTEMS: Negative for diabetes. Denies any chest pain or shortness of breath. She did ponce ve this one history of blood clot in her arm with no known clotting disorders. Not on any blood thin ners. No fevers, no weight loss. PHYSICAL EXAMINATION: GENERAL: Shows a pleasant middle-aged elderly female. HEENT: Benign. NECK: Supple. No lymphadenopathy. LUNGS: Clear to auscultation. HEART: Regular rate and rhythm. ABDOMEN: Soft, nontender, nondistended. EXTREMITIES: Grossly neurovascularly intact except as follows. Examination of both knees reveals the patient walks with a slight bit of a waddling gait, a little bi t of a limp. Examination of the right knee reveals a slight varus alignment. She is tender over the medial joint line. Range of motion about 10 degrees short of full extension to 105 degrees of flexi on. No pain with hip motion. No instability. Examination of the left knee reveals a varus alignment. Tender over the medial joint line. Small kn ee effusion. Range of motion 5-125. X-rays of both knees show advanced bilateral knee degenerative joint disease. She had a complete los s of medial joint space on both sides. The right side a bit worse than the left. She got osteophyte s in all three compartments. ASSESSMENT: A 75-year-old female with advanced bilateral knee degenerative joint disease. It vacill ates from which knee is the worst. She has failed conservative treatment. She was initially schedul ed for left knee surgery, but the right knee is bothering her more and she would like to have her rig ht knee fixed. PLAN: We will take her to the operating room and do right total knee replacement. The risks and ji efits of this procedure were explained to the patient it include but not limited to DVT, PE, , i nfection, neurological injury, vascular injury, bleeding problem, pain. The range of motion, stiffne ss, failure to relieve her symptoms, incomplete relief of symptoms, need for further surgery in the f uture, fracture, leg length inequality, nerve palsy, persistent pain, etc. The patient understands a nd desires to proceed. Informed consent was obtained. She has been seen by [facility] an d cleared for surgery. She is planning to be discharged to home with home health. She lives with he r son. Job ID: [id number]
[~2020-10-04 08:03] MED LIST changes: -ACET-1256 PO; +ACETAMINOPHEN 500 MG TAB PO SCH; -ASCO500T3 PO; -ASPI325T39 PO; +BUPIVACAINE 0.25% 30 ML VIAL ONE; +BUPIVACAINE 0.5 % 5 MG/1 ML PF 10ML VIAL ONE; +BUPIVACAINE LIPOSOME/PF 266 MG, BUPIVACAINE/EPINEPHRINE 50 ML, SODIUM CHLORIDE 0.9% 30 ... INFIL SCH; -CHOL20009 PO; -CIPROFLOXACIN / D5W 400 MG IV SCH; -CYAN500T13 PO; +EPINEPHrine INJ 1 MG/ML AMP ONE; +FAMOTIDINE 20 MG TAB PO SCH; +GABAPENTIN 300 MG CAP PO SCH; -LACTATED RINGER'S 1000ML 1,000 ML IV SCH; -LEVO100T7 PO; +LR 60ML/HR IV SCH; -RANI150T85 PO; +TRANEXAMIC ACID 1,000 MG **IV Intra-op IV SCH; +VANCOMYCIN HCL 1,000 MG/270 ML BAG IV SCH
[2020-10-04] MEDS ORDERED: PROPOFOL IV EMULSION 10 MG/ML 20 ML VIAL IV ONE (08:48)
[2020-10-04] MEDS ORDERED: fentaNYL citrate 100 MCG/2 ML VIAL ONE (08:48)
[2020-10-04] MEDS ORDERED: LIDOCAINE 2% 2 ML VIAL/AMP(20MG/ML) INFIL ONE (08:48)
[2020-10-04] MEDS ORDERED: MIDAZOLAM HCL 1 MG/ML 2ML VIAL ONE (08:48)
--- NOTE | 2020-10-04 09:01 | History & Physical Bridge Note ---
Date of Service October 04, 2020 History & Physical Bridge Note I have examined the patient, reviewed the History & Physical and in the interval since the performance of the History & Physical I have noted the following changes of clinical significance: no changes noted
[2020-10-04] MEDS ORDERED: EPINEPHrine INJ 1 MG/ML AMP ONE (09:38)
[2020-10-04] MEDS ORDERED: SODIUM CHLORIDE 0.9% PF 50 ML VIAL ONE (09:38)
[2020-10-04] MEDS ORDERED: BUPIVACAINE 0.25% 30 ML VIAL ONE (09:38)
[2020-10-04] MEDS ORDERED: BUPIVACAINE LIPOSOME 1.3% 266 MG/20 ML VIAL ONE (09:38)
[2020-10-04] MEDS ORDERED: ONDANSETRON INJ 2 MG/ML 2 ML VIAL ONE ×2 (10:34→11:19)
[2020-10-04] MEDS ORDERED: DEXAMETHASONE SOD INJ 4 MG/ML VIAL ONE (11:21)
--- NOTE | 2020-10-04 12:37 | Post Operative Brief Note ---
PG Immediate Post Op with CF Date of Surgery October 04, 2020 Pre & Post Diagnosis Operation Date: 10/04/20 10:40 Pre-Op Diagnosis: Right Knee Osteoarthritis Post-Op Diagnosis: Right Knee Osteoarthritis I identified the patient and participated in the time-out.: Yes Procedure Operation Date: 10/04/20 10:40 Actual Procedures p Right Total Knee Arthroplasty, Cemented(Right) - Melquiades Swartz MD Surgeon Melquiades Swartz MD Drier Belt Conveyor TORRES aVsquez Estimated Blood Loss 50 Findings Consistent with Post-Op Diagnosis Fluids 900 cc Specimens Specimen Description: Permanent Specimen A: Right knee bone and tissue Drains Umana Catheter Anesthesia Type Spinal MAC Complications none Disposition Accompanied Patient To Recovery: No
[2020-10-04] MEDS ORDERED: VANCOMYCIN CONSULT ACTIVE PRN (12:42)
[2020-10-04] MEDS ORDERED: HYDROmorphone INJ 1 MG/ML SYRINGE ONE ×2 (12:48→12:57)
[2020-10-04] MEDS: HYDROmorphone INJ 2 MG/ML SYR/VIAL IV PRN ×4 (12:49→13:04)
[2020-10-04] MEDS ORDERED: ONDANSETRON INJ 2 MG/ML 2 ML VIAL IV PRN ×2 (12:51→13:49)
[2020-10-04] MEDS ORDERED: ATROPINE SULFATE 0.1 MG/ML 10ML SYR IV PRN (12:51)
[2020-10-04] MEDS ORDERED: PROMETHAZINE HCL 12.5 MG in SODIUM CHLORIDE 0.9% 50 ML IV PRN (12:51)
[2020-10-04] MEDS ORDERED: ePHEDrine sulfate 50 MG/ML AMP IV PRN (12:51)
--- NOTE | 2020-10-04 12:56 | Operative Report ---
Post Operative Report Pre & Post Diagnosis Operation Date: 10/04/20 10:40 Pre-Op Diagnosis: Right Knee Osteoarthritis Post-Op Diagnosis: Right Knee Osteoarthritis I identified the patient and participated in the time-out.: Yes Procedure Operation Date: 10/04/20 10:40 Actual Procedures p Right Total Knee Arthroplasty, Cemented(Right) - Melquiades Swartz MD Surgeon Melquiades Swartz MD Web Development Manager TORRES Vasquez Estimated Blood Loss 50 Findings Consistent with Post-Op Diagnosis Operative findings revealed advanced right knee DJD. She had extensive grade 4 [id number] disease of the medial as well as the patellofemoral compartments. Large knee joint effusion. Diffuse osteopenia throughout. Fluids 900 cc Specimens Right knee sent for pathology. Drains None Anesthesia Type Spinal MAC Complications none Disposition Accompanied Patient To Recovery: No Indications Patient 75-year-old female is had a long history of bilateral knee pain discomfort. She been through extensive conservative treatment the past were to become less successful. She was actually initially scheduled to have her left knee replaced but the right knee is bothering her more now. She is gotten radiographic findings consistent with advanced knee DJD in both knees. She is elected proceed with right total knee arthroplasty. Description of Procedure Operative implants consist of: 1. Biomet Vanguard size 65 right posterior stabilized femoral component. 2. Biomet size 67 tibial tray. 3. 12 mm posterior stabilized polyethylene insert. 4. 28 x 8 all polypatella. The patient was taken to the operating, identified, placed on the operating table supine position but all contractors were properly padded. IV antibiotics tried by anesthesia team. A spinal anesthetic and abductor canal block had provided holding area. Umana catheter was placed in sterile fashion a right thigh turn was then placed in the right lower extremities and prepped and draped in usual sterile fashion. The right leg was elevated exsanguinated with use of an Esmarch and tourniquet placed at 300 mmHg. An anterior approach to the right knee was then performed through longitudinal incision centered over the patella. Sharp dissection was got through subcutaneous this down to the extensor mechanism. Medial parapatellar arthrotomy incision was made. Some subperiosteal dissection was carried out medially. The fat pad was resected from each patella tendon. Lateral patellofemoral ligament was released. Patella was subluxated laterally and the knee was flexed. The osteophytes were taken off distal femur. The ACL and PCL were then released and distal femur the tibia subluxated anteriorly. Th e external tibial alignment jig was then placed in the interface the tibia and adjusted 12 mm medially. Proximal tibial cut was made remove about a millimeter or 2 of bone from most deficient aspect medial tibial plateau. The tibia sized to a size 67. Attention drawn the femur. The distal femur turned with a sharp drop with intramedullary canal was suction. A right 5 degree valgus cutting guide was placed. The distal femoral cutting block was pinned in place. Distal femoral cut was made to take an additional 3 mm of bone off the distal femur. The femur was then sized to a size 65. We downsized this just slightly. The AP cutting block was pinned parallel to the epicondylar axis which was 4 degrees of external rotation. The anterior cut, anterior chamfer, posterior cut, posterior chamfer cuts were then made. The box cutting placed in the just slight lateral box cut was made. The knee was flexed. The remnants of the medial and lateral menisci were excised. The osteophytes were taken off the posterior aspect the femur. A trial femoral component was placed. The tibial tray was pinned in maximum external rotation and the drill and stem punch were used to create defect in proximal tibia for the tibial tray. The knee was then trialed and the 12 mm insert fit most appropriately. Attention drawn the patella. Patella was cleaned of all soft tissues. Patella thickness measured 20 mm in thickness was cut down to 12. Size a size 28 patella. The lug holes were drilled for the 28 patella. The lateral osteophyte was removed. Patella button was placed. Knee was taken through range of motion patella tracked nicely with no thumbs test. Attention drawn to place the permanent components. All trial components were removed. Bone plug was placed in the distal femur limit blood loss. Double batch Palacos G cement was mixed. A Biomet Vanguard size 65 right posterior stabilized femoral component, size 67 tibial tray, 12 mm posterior thighs polyethylene insert, and a 28 x 8 all polypatella then cemented in place. Knee was brought out in full extension total cement hardened. Final cement check was then performed. The pericapsular tissues were injected with a total of 100 cc of combination of 20 cc of Exparel, 30 cc normal saline, 50 cc of quarter percent Marcaine with epinephrine. Patient did receive 1 g tranexamic acid. The turn was then let down for final turn time of 55 minutes. Hemostasis assured use electrocautery. Extensor mechanism closed with combination 1 PDS suture #1 Vicryl suture in [id number] fashion for the extensor mechanism checked found to be intact the subcutaneous tissue then closed with 2 Dexon suture in a buried knot fashion and the skin was closed skin ana. Leg was then cleaned dried a sterile dressing both Xeroform, 4 x 4's, sterile cast padding, Neymar bandage were applied. Patient then transferred to the recovery room in stable condition. Patient tolerated procedure well and there were no complications. Jonas Vasquez, my physician fire assistant, was present for the entire procedure. His assistance was essential and required for appropriate patient positioning, prepping and draping, surgical exposure, performing the technical details of the operation, placement the implants, closure of the wound, and placement of the sterile bandage. I attest to the content of the Intraoperative Record and any orders documented therein. Any exceptions are noted below.
--- NOTE | 2020-10-04 13:20 | XRay Report ---
XR knee RT 1 or 2V routine CLINICAL HISTORY: Postoperative evaluation. COMPARISON: Knee radiograph July 08, 2020. FINDINGS: Alignment of the total right knee arthroplasty is anatomic. There is no periprosthetic fra cture. There is no unexpected radiopaque foreign body. Skin ana are noted. IMPRESSION: Expected findings following total right knee arthroplasty. ACT 112: Negative or not required by law. Electronically signed by: Herb Shelton M.D. 10/04/2020 1:18 PM
--- NOTE | 2020-10-04 13:46 | Anesthesiology Progress Note ---
Date of Service October 04, 2020 Anesthesia Post Procedure Vital Signs Vital Signs: Temp Pulse Pulse Pulse Resp BP Pulse Ox 10/04/20 13:32 36.3 C L 67 16 138/80 100 10/04/20 13:10 36.2 C L 58 L 16 148/78 H 99 10/04/20 13:00 68 16 140/88 99 10/04/20 12:50 76 17 142/72 H 99 10/04/20 12:43 36.1 C L 78 18 149/79 H 99 10/04/20 08:45 36.7 C 64 18 163/80 H 100 Pain Intensity Right Leg: Pain Intensity: 5 Transfer of Care Handoff Completed per policy Notes Mental Status: alert / awake / arousable and participated in evaluation Patient Amnestic to Procedure: Yes Nausea / Vomiting: adequately controlled Pain: adequately controlled Airway Patency, RR, SpO2: stable & adequate BP & HR: stable & adequate Hydration State: stable & adequate Anesthetic Complications: no major complications apparent and Pt Satisfied with anesthetic care
[2020-10-04] MEDS ORDERED: ALUMINUM/MAGNESIUM SUSP 30 ML UDC PO PRN (13:49)
[2020-10-04] MEDS ORDERED: HYDROmorphone INJ 0.5 MG/0.5 ML SYR IV PRN (13:49)
[2020-10-04] MEDS ORDERED: NALOXONE HCL 0.4 MG/1 ML VIAL/CARP IV PRN (13:49)
[2020-10-04] MEDS ORDERED: SODIUM CHLORIDE 0.9% 1000ML 1,000 ML IV SCH (13:49)
[2020-10-04] MEDS ORDERED: bisacodyL 10 MG SUPP PR PRN (13:49)
[2020-10-04] MEDS ORDERED: traMADol HCL 50 MG TABLET PO PRN (13:49)
[2020-10-04] MEDS ORDERED: MAGNESIUM HYDROXIDE SUSP 30 ML UDC PO PRN (13:49)
[2020-10-04] MEDS ORDERED: METOCLOPRAMIDE HCL INJ 5 MG/ML 2 ML VIAL IV PRN (13:49)
[2020-10-04] MEDS: KETOROLAC TROMETHAMINE 15 MG/ML VIAL IV SCH ×2 (14:55→21:22)
[2020-10-04] MEDS: ACETAMINOPHEN 500 MG TAB PO SCH ×3 (14:55→21:20)
[2020-10-04] MEDS: FERROUS GLUCONATE 324 MG TAB PO SCH (17:47)
[2020-10-04] MEDS ORDERED: TRANEXAMIC ACID / 0.7% NACL 1,000 MG/100 ML BAG IV SCH (18:45)
[2020-10-04] MEDS ORDERED: VANCOMYCIN HCL 1,000 MG/270 ML BAG IV SCH (20:00)
[2020-10-04] MEDS ORDERED: SENNA 8.6 MG TAB PO SCH (21:00)
[2020-10-04] MEDS ORDERED: MONTELUKAST SODIUM 10 MG TABLET PO SCH (21:00)
[2020-10-04] MEDS: DOCUSATE SODIUM 100 MG CAP PO SCH (21:19)
[2020-10-04] MEDS: CHOLECALCIFEROL 1,000 UNITS 25 MCG TAB PO SCH (21:20)
[2020-10-04] MEDS: METOPROLOL SUCC 25MG EXT REL TAB PO SCH (21:20)
[2020-10-04] MEDS: PANTOprazole 40 MG TAB PO SCH (21:22)
[2020-10-04] MEDS: ASPIRIN 81 MG ECTAB PO SCH (21:22)
[2020-10-05] MEDS: KETOROLAC TROMETHAMINE 15 MG/ML VIAL IV SCH ×4 (02:58→14:30)
[2020-10-05] MEDS ORDERED: LR 500ML BOLUS, THEN 15ML/HR IV SCH (06:00)
[2020-10-05] MEDS: ACETAMINOPHEN 500 MG TAB PO SCH ×2 (06:00→14:31)
[2020-10-05] MEDS ORDERED: LEVOTHYROXINE SODIUM 100 MCG TABLET PO SCH (06:30)
[2020-10-05 06:45] LABS: Hematocrit (blood only) 33.9 % (37-47); Hemoglobin 11.2 g/dL (12.0-16.0); Mean Corpuscular Hemoglobin 30.9 pg (25-34); Mean Corpuscular Volume 93.6 fL (80-100); Mean Platelet Volume 10.1 fL (7.4-10.4); Platelet Count 296 K/uL (130-400); RDW Coefficient of Variation 13.1 % (11.5-14.5); RDW Standard Deviation 44.6 fL (36.4-46.3); Red Blood Count 3.62 M/uL (4.2-5.4); White Blood Count 12.17 K/uL (4.8-10.8)
[2020-10-05 07:12] LABS: BUN Creatinine Ratio 16.7 (10-20); Calcium 8.6 mg/dl (8.5-10.1); Creatinine Clr Calc Pharmacy 57.5 ml/min; Est GFR (African American) 87.7 ml/min; Est GFR (Non-African American) 75.7 ml/min; Potassium 4.2 mmol/L (3.5-5.1)
[2020-10-05] MEDS: DOCUSATE SODIUM 100 MG CAP PO SCH (08:47)
[2020-10-05] MEDS: PANTOprazole 40 MG TAB PO SCH (08:48)
[2020-10-05] MEDS: CHOLECALCIFEROL 1,000 UNITS 25 MCG TAB PO SCH (08:48)
[2020-10-05] MEDS: METOPROLOL SUCC 25MG EXT REL TAB PO SCH (08:48)
[2020-10-05] MEDS: dexAMETHasone 10 MG in SYRINGE 0 ML IV SCH ×2 (08:49→11:25)
[2020-10-05] MEDS: FERROUS GLUCONATE 324 MG TAB PO SCH (08:49)
[2020-10-05] MEDS: ASPIRIN 81 MG ECTAB PO SCH (08:49)
[2020-10-05] MEDS ORDERED: ASCORBIC ACID 500 MG TAB PO SCH (09:00)
[2020-10-05] MEDS ORDERED: MULTIVITAMIN TAB PO SCH (09:00)
[2020-10-05] MEDS ORDERED: CALCIUM CARBONATE 1250MG TAB PO SCH (09:00)
[2020-10-05] MEDS ORDERED: LORATADINE 10 MG TAB PO SCH (09:00)
[2020-10-05] MEDS ORDERED: CYANOCOBALAMIN 500 MCG TABLET (VITAMIN B-12) PO SCH (09:00)
--- NOTE | 2020-10-05 12:47 | Progress Notes ---
DATE OF SERVICE: 10/05/2020 SUBJECTIVE: A 75-year-old white female postop day 1 from a right knee replacement. She is doing pre tty well. Pain has been controlled. No chest pain or shortness of breath. Therapy went pretty well . OBJECTIVE: VITAL SIGNS: Temperature is 36.5. Vital signs are stable. PHYSICAL EXAMINATION: GENERAL: She is a pleasant, elderly female. She is sitting up at her bedside chair, talking to the occupational therapist. She looks comfortable. LUNGS: Clear to auscultation. HEART: Regular rate and rhythm. ABDOMEN: Soft, nontender, nondistended. EXTREMITIES: Grossly neurovascularly intact except as follows: Examination of the right leg reveals the dressing to be clean, dry and intact. There is no drainage. She can dorsiflex and plantarflex her foot appropriately. She can do a good straight leg raise. LABORATORY DATA: Hemoglobin 11.2. Hematocrit 33.9. White cell count 12.17. Electrolytes are stabl e. ASSESSMENT: A 75-year-old white female postoperative day 1 from right knee replacement, doing pretty well. Pain is controlled. She is neurologically intact. Therapy has gone well. PLAN: 1. DVT prophylaxis includes thigh-high TEDs, SCDs, and aspirin twice a day. 2. PT, OT, weightbear as tolerated. Right total knee protocol. 3. Pain control, doing well with current pain regimen. 4. Disposition: Plan to discharge to home with some home health hopefully later today if continues t o do okay with mobilization. She can be discharged with some home health. Job ID: [id number]
--- NOTE | 2020-10-08 13:12 | Discharge Summary ---
Date of Service October 08, 2020 Discharge Data Procedures Performed Operation Date: 10/04/20 10:40 Actual Procedures p Right Total Knee Arthroplasty, Cemented(Right) - Melquiades Swartz MD Hospital Course (1) Status post total right knee replacement: This is a 75 year old patient admitted on 10/04/20 and underwent total knee arthroplasty. She tolerated the procedure well and there were no complications. Transferred to the PACU post op and later to the orthopedic floor for further care. She was given ancef for antibiotic prophylaxis. She was also given CADE stockings, SCDs, and aspirin for DVT prophylaxis. Hemoglobin, hematocrit, and vital signs were monitored during her hospital stay and remained stable. Did not require any blood transfusions. There were no complications during her hospital stay. By post op day #1 the patient was tolerating a regular diet, pain was reasonably controlled with oral pain medicine, and she was participating in physical therapy. On post op day #1 the patient was discharged home and set up with home health care. She was given printed discharge instructions including prescriptions for extra strength tylenol, aspirin, and tramadol. Continue physical therapy, weight bearing as tolerated. Continue CADE stockings. Follow up approximately 2 weeks post op or sooner if there are problems or concerns. Coding Level of Care Code None Diagnoses Status post total right knee replacement Z96.651
[2020-10-10] MEDS ORDERED: LEVOTHYROXINE SODIUM 50 MCG TABLET PO SCH (06:30)
== END 2020-10-05 17:44 | disposition home health service (06) ==
LOC: ASU 08:03 → 3E 08:03

== ENCOUNTER 2021-10-04 09:52 | Observation (INO) ==
--- NOTE | 2021-09-13 14:58 | PAT Medication Instructions ---
Medication Instructions Date of Service September 13, 2021 Home Medications Medication Instructions Recorded clindamycin HCl 300 mg capsule 300 mg PO ONCE #2 cap 02/11/21 montelukast 10 mg tablet 10 mg PO HS #90 tab 03/29/21 ascorbic acid (vitamin C) 500 mg tablet 500 mg PO QAM cholecalciferol (vitamin D3) 50 mcg (2,000 unit) tablet 2,000 unit PO BID cyanocobalamin (vitamin B-12) 500 mcg tablet 500 mcg PO QAM loratadine 10 mg tablet 10 mg PO QAM calcium carbonate 500 mg calcium (1,250 mg) tablet (Calcium 500) 500 mg PO HS clindamycin HCl 300 mg capsule 300 mg PO ONCE acetaminophen 650 mg tablet,extended release 650 mg PO HS aspirin 81 mg tablet,delayed release 81 mg PO QAM montelukast 10 mg tablet 10 mg PO HS levothyroxine 100 mcg tablet 100 mcg PO UD metoprolol succinate 25 mg tablet,extended release 24 hr 25 mg PO QAM omeprazole 20 mg capsule,delayed release 40 mg PO HS Continue as directed clindamycin HCl 300 mg capsule 300 mg PO ONCE (prior to dental work) DO NOT take the morning of surgery ascorbic acid (vitamin C) 500 mg tablet 500 mg PO QAM cholecalciferol (vitamin D3) 50 mcg (2,000 unit) tablet 2,000 unit PO BID cyanocobalamin (vitamin B-12) 500 mcg tablet 500 mcg PO QAM loratadine 10 mg tablet 10 mg PO QAM Take morning of surgery With a small sip of water, OTHERWISE NOTHING TO EAT OR DRINK AFTER MIDNIGHT: aspirin 81 mg tablet,delayed release 81 mg PO QAM (continue as normal unless told otherwise by surgeon) levothyroxine 100 mcg tablet 100 mcg PO UD metoprolol succinate 25 mg tablet,extended release 24 hr 25 mg PO QAM Take evening before surgery cholecalciferol (vitamin D3) 50 mcg (2,000 unit) tablet 2,000 unit PO BID calcium carbonate 500 mg calcium (1,250 mg) tablet (Calcium 500) 500 mg PO HS acetaminophen 650 mg tablet,extended release 650 mg PO HS montelukast 10 mg tablet 10 mg PO HS omeprazole 20 mg capsule,delayed release 40 mg PO HS Other Notes If you have any questions please call us at [phone] or [phone] or [phone] or [phone]
--- NOTE | 2021-09-14 10:47 | Anesthesiology Consultation ---
Date of Service September 14, 2021 Assessment & Plan (1) Encounter for pre-operative examination: Chart Review Chart Review: Acceptable Risk for Surgery (pending preop Covid testing and most recent cardio note/testing (scheduled 09/30/21- will attempt to get office note and testing if available) ) and Patient seen in Pre Admission Testing - Will attempt to get cardio office visit note (routine) 09/30/21 at [facility] [place]) and any updated cardiac testing Pt's previous TKA done under [facility]- per anesthesia consultation- pt declined spinal due to back pain. Per PAT appt on 09/14/21, patient traveled for the month of August to [place], [place] and [place]. Pt recently at graduation alliance party 09/10/21- traveled by car. No known Covid positive exposures or Covid related symptoms. No known Covid infection in the past 90 days. Pt is vaccinated for Covid. Preop Covid testing scheduled 10/01/21 = will await results. Educated on importance of self quarantining, social distancing and wearing mask in public for the patient one week prior to surgery and after Covid testing done Right TKA 10/04/20= Done under [facility] with LMA #4 IGel. Atraumatic insertion x 1. 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 Patient returns for routine follow-up.Cardio aware of upcoming TKAs.Activity limited due to knee painnevertheless able to ambulate around the house without exertional chest pain, dyspnea, dizziness, syncope. Pulmonary artery aneurysmdimension has been stable over past 3 years. Pulmonary artery aneurysm has very low risk of dissection. Hence no intervention is indicated at this time. Will need periodic sectional imagingevery 2 to 3 years to assess maximum dimensions.Patient is low to intermediate risk for major adverse cardiovascular events for upcoming knee surgery (presumptively with general anesthesia). Specifically she has a low risk of AK, stroke, heart failure, and . Does have a theoretical risk for pulmonary artery dissection (though this is also low). Advised that patient maintain euvolemia and that her beta-brian be continued perioperatively and that afterload is minimized on surgery.Follow-up in 1 year. Teaching & Discussion Pre-Anesthesia Teaching/Discussion Notes: Instructed NPO after midnight before surgery,except medications with 15 cc of water. Medication instructions provided according to the PAT guidelines. History Surgery Operation Date: 10/04/21 07:00 Proposed Procedures p Left Total Knee Arthroplasty - Melquiades Swartz MD Height/Weight Height: 5 ft Weight: 80.6 kg Allergies Allergy/AdvReac Type Severity Reaction Status Date / Time latex Allergy Severe Rash, Verified 09/13/21 14:13 redness Penicillins Allergy Severe Respiratory Verified 09/13/21 14:13 difficulties morphine Allergy Mild Itching, Verified 09/13/21 14:13 hives adhesive Allergy Unknown Redness, Verified 09/13/21 14:13 itchiness prednisone AdvReac Intermediate Elevated Verified 09/13/21 14:13 BP, hives bacitracin AdvReac Unknown "Doesn't Verified 09/13/21 14:13 help" neomycin AdvReac Unknown "Doesn't Verified 09/13/21 14:13 help" polymyxin B AdvReac Unknown "Doesn't Verified 09/13/21 14:13 help" Medications Home Medications Medication Instructions Recorded Confirmed Last Taken ascorbic acid (vitamin C) 500 mg 500 mg PO QAM 02/28/18 09/13/21 10/03/20 08:30 tablet cholecalciferol (vitamin D3) 50 2,000 unit PO BID 02/28/18 09/13/21 10/03/20 08:30 mcg (2,000 unit) tablet cyanocobalamin (vitamin B-12) 500 500 mcg PO QAM 02/28/18 09/13/21 10/03/20 08:30 mcg tablet loratadine 10 mg tablet 10 mg PO QAM 02/28/18 09/13/21 10/03/20 08:30 calcium carbonate 500 mg calcium 500 mg PO HS 04/07/19 09/13/21 10/03/20 08:30 (1,250 mg) tablet (Calcium 500) clindamycin HCl 300 mg capsule 300 mg PO ONCE #2 cap 02/11/21 09/13/21 Unknown acetaminophen 650 mg 650 mg PO HS 03/10/21 09/13/21 Unknown tablet,extended release aspirin 81 mg tablet,delayed 81 mg PO QAM 03/10/21 09/13/21 Unknown release montelukast 10 mg tablet 10 mg PO HS #90 tab 03/29/21 09/13/21 Unknown levothyroxine 100 mcg tablet 100 mcg PO UD 09/13/21 09/13/21 Unknown metoprolol succinate 25 mg 25 mg PO QAM 09/13/21 09/13/21 Unknown tablet,extended release 24 hr omeprazole 20 mg capsule,delayed 40 mg PO HS 09/13/21 09/13/21 Unknown release Past Medical History Medical History Asthma Stable, no inhalers Bicuspid aortic valve Mild per cardio records 08/2020 cardiac MRI shows partial fusion of left and right coronary cusps of the AV. No significant . Mild AR. Gastroesophageal reflux disease Well controlled and stable History of anesthesia problem Slow to wake History of COVID-19 03/2021, PCR, not hospitalized, "not very sick">resolved. History of DVT (deep vein thrombosis) LUE and L Lower arm(2012) > post-op Secondary to PICC line per records History of kidney stones No recent issues History of pancreatitis Around 2009 - had jaundice and pancreatitis (occurred shortly after fredy) Hypertension Hypothyroidism H/o of hyperthyroidism- s/p radioactive iodine ablation- resulted in hypothyroidism Obesity Ocular migraine Osteoporosis Pulmonary artery aneurysm Under surveillance by [facility] (Dr. Robledo), cardiac MRI on 09/07/20 Secondary to pulmonary valve stenosis. Stable - per 2017 and 2020 cardiac MRIs Pulmonary valve stenosis Mid Spinal stenosis Chronic back pain Transient ischemic attack (TIA) Occurred over 30 years ago- s/p hysterectomy- had been on high doses of estrogen- had three TIAs- no issues since Exercise / Class Metabolic Activity III < 4 Walking/Shop/Light housework (one flight of stairs - no chest pain or SOB - goes slow ) Past Family History Family History Brother Lung cancer Son Diabetes Father Stroke Mother Heart disease Hypertension Myocardial infarction Unknown Allergies Asthma Deafness Denies family history of Ovarian cancer Prostate cancer Breast cancer Colorectal cancer Past Surgical History Surgical History H/O parathyroidectomy Secondary to hyperparathyroidism History of bowel resection Secondary to diverticulitis History of cardiac catheterization 2018, [place]> no angiographic evidence of CAD; f/u Dr. Indu Prescott, [place] History of cataract surgery History of colonoscopy History of cystoscopy History of dilation and curettage History of ERCP History of hernia repair History of non-cataract eye surgery History of removal of ureteral stent History of right knee joint replacement 10/04/20 [facility] History of ureter stent Hx of cholecystectomy Hx of total hysterectomy with removal of both tubes and ovaries Hx of tubal ligation Past Anesthesia History No Hx of Anesthesia Complications (with exception to slow to wake- groggy- no reintubation or ICU stay - refuses SAB) and No Family Hx of Anesthesia Complications (with exception to daughter- slow to wake and PONV ) History of PONV No Hx of PONV and No Hx of Motion Sickness Social History Smoking Status: Never smoker Do You Dip or Chew Tobacco: No Hx Alcohol Use: No Hx Substance Use: No substance use type: does not use Review of Systems Occ wheezing and cough- chronic/intermittent Patient denies chest pain, shortness of breath at rest, palpitations. No hx of seizures, AK, apnea/snoring. No hx of blood transfusions Physical Exam Vital Signs VITALS BP 134/73 P 76 TEMP 98.1 SP02 96% RESP 16 Constitutional no acute distress ENMT Mouth: no TMJ clicking Thyromental Distance: < 3.5 Finger Breadths (2.5) Mallampati Class: III Crowns to top front teeth Permanent implants to side teeth and molars Neck + limited neck extension (mild ) Respiratory normal respiratory effort; no respiratory distress Auscultation: lungs clear to auscultation bilaterally; no wheezes Cardiovascular Rate/Rhythm: regular rate and regular rhythm Heart Sounds: no murmur Vessels: no carotid bruit Musculoskeletal Spine: no pain with cervical ROM Extremities: extremities normal to inspection Psychiatric Orientation: alert Lab Results Anesthesia Preop Results Results Anesthesia Widget: WBC 5.96 K/ul (4.8-10.8) 09/14/21 Hgb 13.2 g/dl (12.0-16.0) 09/14/21 Hct 39.3 % (34.1-44.9) 09/14/21 Plt 262 K/uL (130-400) 09/14/21 Na 140 mmol/L (136-145) 09/14/21 K 4.4 mmol/L (3.5-5.1) 09/14/21 Cl 104 mmol/L (98-107) 09/14/21 CO2 30 mmol/L (21-32) 09/14/21 BUN 13 mg/dl (6-23) 09/14/21 Creat 0.84 mg/dl (0.6-1.2) 09/14/21 Glucose Level 94 mg/dl (70-99(Fasting)) 09/14/21 PT 10.2 Seconds (9.0-12.0) 09/14/21 PTT 26.9 Seconds (21.0-31.0) 09/14/21 INR 1.0 (0.9-1.1) 09/14/21 Blood Type O Positive 09/14/21 Antibody Screen NEGATIVE 09/14/21 Testing Electrocardiogram Date: 09/14/21 Findings: + NSR @ (76bpm) and + no change from (July 17, 2015 per cardio ) Normal EKG per cardio. Chest X-Ray Date: 09/14/21 FINDINGS: Unchanged left hilar redemonstrated corresponding with marked enlargement of the pulmonary artery. The cardiac silhouette is normal in size. There is no pneumothorax, pleural effusion, airspace consolidation or overt pulmonary edema. Hyperinflation with mild linear subsegmental atelectasis/scarring. Degenerative changes of the shoulders and spine. Surgical clips of the upper abdomen. IMPRESSION: 1. Hyperinflation without acute process. 2. Marked enlargement of the pulmonary artery redemonstrated. Echocardiogram Date: 09/26/19 EF: 55% LV Function: normal RWMA: + none Other Findings: + LVH (Mild/concentric); no diastolic dysfunction Bicuspid aortic valve. Due to trivial effusion between left and right cusps with mild to moderate regurgitation. Mild aortic stenosis. 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 Pulmonic stenosis is mild with trivial pulmonic regurgitation. Mild RV dilation with normal systolic function. Mild TR. Normal aortic root and ascending aortic dimensions. Unobstructed of aortic arch flow pattern. Severely dilated MPA. No significant change from previous study dated 01/05/2017. Cardiac Catheterization Date:08/13/18 No angiographic evidence of epicardial coronary artery disease. Mildly elevated right heart filling pressures. Mildly elevated pulmonary vascular resistance. There was a 20 mmHg peak-peak gradient across RVOT and/or pulmonic valve. Other Testing -Cardiac MRI (09/07/20): Aneurysmal main and branch pulmonary arteries. Partial fusion of left and right coronary cusps of the AV with symmetrical leaflet size. No significant stenosis, mild aortic regurgitation. LVEF 61%. Normal wall motion and thickness. Normal RV volume and systolic function. RVEF 66%. No myocardial fibrosis or scarring.
--- NOTE | 2021-10-01 11:25 | History and Physical Report ---
DATE OF ADMISSION: 10/04/2021 CHIEF COMPLAINT: Persistent left knee pain, discomfort and stiffness. 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 She has got a long history of knee problems , treated conservatively over the years. This became less successful over time. She had her right k nee replaced a year ago and has done pretty well from this. She has tweaked it a couple of times, ponce d a little bit more pain intermittently, but it seems to have calmed down. She continues to be bothe red by left knee pain. She was initially treated at [facility]. She would like to get h er left knee fixed. She describes global pain. It is increased with weightbearing. PAST MEDICAL HISTORY: 1. Pulmonary artery aneurysm, treated conservatively at [facility]. 2. Mitral valve prolapse. 3. Hypothyroidism. 4. History of GI bleed without a clotting disorder. 5. Asthma. PAST SURGICAL HISTORY: Includes, 1. Hysterectomy. 2. Cholecystectomy. 3. Kidney stones. 4. Herniorrhaphy. 5. Bowel surgery. 6. Parathyroid surgery. 7. Right total knee replacement done on 10/04/2020. ALLERGIES: PREDNISONE, PENICILLIN, POLYSPORIN, NEOSPORIN. CURRENT MEDICATIONS: Include, 1. Vitamin C. 2. Calcium carbonate. 3. Vitamin D3. 4. Vitamin B. 5. Levothyroxine. 6. Loratadine. 7. Metoprolol. 8. Montelukast. 9. Omeprazole. 10. Tramadol. SOCIAL HISTORY: A 76-year-old white female. She is from [place]. She is retired. [facility] and is a . Does not smoke. FAMILY HISTORY: Noncontributory. REVIEW OF SYSTEMS: Negative for diabetes, neurologic problem, vascular problem, or bleeding disorder s. No chest pain or shortness of breath. No history of DVT or PE. PHYSICAL EXAMINATION: GENERAL: Shows a pleasant, elderly female. Looks to be in pretty good health. HEENT: Benign. NECK: Supple. No lymphadenopathy. LUNGS: Clear to auscultation. HEART: Regular rate and rhythm. ABDOMEN: Soft, nontender, nondistended. EXTREMITIES: Grossly neurovascularly intact except as follows: Examination of the left knee reveals the patient walks with a slight bit of a limp. She has got a moderate soft tissue envelope. Slight varus alignment to her knee. Tender over the medial joint line. She has got some slight bony hyper trophy medially. Range of motion about 5 degrees short of full extension and 125 degrees of flexion. There is no instability. Examination of the right knee reveals a well-healed incision. Knee alignment looks anatomic. Range of motion is 0-120. X-RAYS: X-rays of the left knee are reviewed. It shows advanced left knee medial compartment DJD. She has complete loss of her medial joint space. Mild subchondral sclerosis. Diffuse osteopenia. ASSESSMENT: A 76-year-old white female now a year out from a right knee replacement, with left knee pain and degenerative joint disease. She has failed conservative treatment. She would like to have her left knee fixed. PLAN: We will take her to the operating room and do a left knee replacement. The risks and benefits of this procedure were explained to the patient and include but not limited to DVT, PE, , infec tion, neurological injury, vascular injury, bleeding problem, pain, limited range of motion, stiffnes s, failure to relieve her symptoms, incomplete relief of symptoms, etc. The patient understands and desires to proceed. Informed consent was obtained. We did talk about taking metoprolol, omeprazole, and the thyroid replacement on the morning of surger y with a sip of water. She does live by herself. She is planning on going home with, I believe, a [facility]. We will see how she recovers in the hospital. Job ID: [id number]
[~2021-10-04 09:52] MED LIST changes: -BUPIVACAINE 0.25% 30 ML VIAL ONE; -EPINEPHrine INJ 1 MG/ML AMP ONE; -GABAPENTIN 300 MG CAP PO SCH; +LR 15ML/HR IV SCH; +METOCLOPRAMIDE HCL 10 MG TABLET PO SCH; +ROPIVACAINE 0.5% 5 MG/ML 30 ML VIAL ONE; -VANCOMYCIN HCL 1,000 MG/270 ML BAG IV SCH; +VANCOMYCIN HCL 1,250 MG in SODIUM CHLORIDE 0.9% 250 ML IV SCH
--- NOTE | 2021-10-04 11:01 | History & Physical Bridge Note ---
Date of Service October 04, 2021 History & Physical Bridge Note I have examined the patient, reviewed the History & Physical and in the interval since the performance of the History & Physical I have noted the following changes of clinical significance: no changes noted
[2021-10-04] MEDS ORDERED: PROPOFOL IV EMULSION 10 MG/ML 20 ML VIAL IV ONE (12:22)
[2021-10-04] MEDS ORDERED: MIDAZOLAM HCL 1 MG/ML 2ML VIAL ONE (12:23)
[2021-10-04] MEDS ORDERED: BUPIVACAINE/EPINEPHRINE 0.25% 1:200,000 30 ML VIAL ONE (13:13)
[2021-10-04] MEDS ORDERED: BUPIVACAINE LIPOSOME 1.3% 266 MG/20 ML VIAL ONE (13:14)
[2021-10-04] MEDS ORDERED: SODIUM CHLORIDE 0.9% PF 50 ML VIAL ONE (13:14)
[2021-10-04] MEDS ORDERED: fentaNYL citrate 100 MCG/2 ML VIAL ONE ×3 (13:42→15:41)
[2021-10-04] MEDS ORDERED: ONDANSETRON INJ 2 MG/ML 2 ML VIAL ONE (13:52)
[2021-10-04] MEDS ORDERED: ePHEDrine sulfate 50 MG/ML AMP ONE (13:52)
--- NOTE | 2021-10-04 15:25 | Operative Report ---
PG Post Operative Report Pre & Post Diagnosis Operation Date: 10/04/21 12:30 Pre-Op Diagnosis: Left knee pain and degenerative joint disease Post-Op Diagnosis: Left knee pain and degenerative joint disease I identified the patient and participated in the time-out.: Yes Procedure Operation Date: 10/04/21 12:30 Actual Procedures p Left Total Knee Replacement(Left) - Melquiades Swartz MD Surgeon Melquiades Swartz MD Cotton Classer Jonas Vasquez PA-C Estimated Blood Loss 50 Findings Consistent with Post-Op Diagnosis Operative findings were advanced left knee DJD. She had extensive grade 4 [id number] disease and eburnation of the medial compartment. Rest of knee is pretty well spared. Moderate-sized joint effusion. Slight varus alignment to her knee with slight flexion contracture. Specimens Left knee sent for pathology Anesthesia Type General Complications none Disposition Accompanied Patient To Recovery: No Indications Patient is a 76-year-old female has a long history of bilateral knee problems and arthritic disease. She has been through extensive conservative treatment which became less successful over time. She had her right knee replaced about a year ago and is done pretty well from this. She continues to be limited by left knee pain. She elected proceed with surgical management. Description of Procedure Operative implants consist of: 1 Biomet Vanguard size 62.5 left posterior stabilized femoral component. 2. Biomet size 67 tibial tray. 3. 10 mm posterior stabilized polyethylene insert. 4. 28 x 8 all Paller patella. The patient was taken the operating, identified, placed on the operating table supine position protectors were properly padded. IV antibiotics tried by anesthesia team. A spinal anesthetic and abductor canal block had provided holding area. Umana catheter was placed in sterile fashion. Left atrium was then placed in the left lower extremities and prepped and draped in usual sterile fashion. The left leg was elevated exsanguinated with use of an Esmarch in terms playset 300 mmHg. An anterior posterior left knee was then performed through longitudinal incision centered over the patella. Sharp dissection was carried through subcutaneous tissue down the extensor mechanism. A medial parapatellar arthrotomy incision was made. Some subperiosteal dissection was carried out medially. The fat pad was resected from Neath patella tendon. The lateral patellofemoral ligament was released. Patella subluxated laterally and the knee was flexed. The osteophytes taken out distal femur. The ACL and PCL were then released from distal femur the tibia subluxated anteriorly. External tibial alignment jig was then placed in the interface the tibia and adjusted 14 mm medially. The proximal tibial cut was made remove about a millimeter bone from most deficient aspect tibial plateau. The tibia sized to a size 67. Attention drawn the femur. The distal femur was entered with a sharp drill. Intramedullary canal was suction. A left 5 degree valgus cutting guide was placed. Distal femoral cutting block was pinned in place. Distal femoral cut was made to take an additional 3 mm bone off distal femur. The femur was then sized to a size 62.5. The AP cutting block was pinned parallel to the epicondylar axis which was 5 degrees of external rotation. Anterior cut, anterior chamfer, posterior cut, posterior chamfer cuts were made. The box cutting guide was placed in the just slight lateral box cut was made. The knee was flexed. The remnants of the medial lateral menisci were excised. The osteophytes taken off the posterior aspect of the femur. A trial femoral component was placed. Tibial tray was pinned in maximum external rotation and the drill and stem punch were used to create defect in proximal tibia for the tibial tray. Knee was then trialed and 10 mm insert fit most appropriately. Attention drawn the patella. The patella was cleaned of all soft tissues. Patella thickness measured 19 mm in thickness cut down to 12. Was sized to a size 28 patella. The lug holes were drilled for the 28 patella. The lateral osteophyte was removed. Patella button was placed. Knee was taken through range of motion and the patella tracked nicely with no thumbs test. Attention drawn to placing permanent components. All trial components were removed. Bone plug was placed in the distal femur to limit blood loss. A double batch Palacos G cement was mixed. A Biomet Vanguard size 62.5 left posterior stabilized femoral component, size 67 tibial tray, 10 mm posterior stabilized polyethylene insert, and a 28 x 8 all Paller patella then cemented in place. New spreadout into full extension total cement hardened. Final cement check was then performed. The pericapsular tissues were injected with total of 100 cc of combination of 20 cc of Exparel, 30 cc normal saline, 50 cc of quarter percent Marcaine with epinephrine. Patient did receive 1 g tranexamic acid. The tourniquet was then let down for final turn time of 52 minutes. Hemostasis assured use electrocautery. Extensor mechanism closed with a combination 1 PDS suture #1 Vicryl suture in a [id number] fashion. Extensor mechanism was checked found to be intact the subcutaneous tissue then closed with 2 Dexon suture in a buried interrupted fashion the skin was closed skin ana. Leg was then cleaned and dried a sterile dressing was Xeroform, 4 fours, sterile cast padding, Neymar bandage applied. Patient transferred to the recovery room in stable condition. Patient tolerated procedure well and there w ere no complications. Jonas Vasquez, my physician insurance assistant, was present for the entire procedure. His assistance was essential and required for appropriate patient positioning, prepping and draping, surgical exposure, performing the technical details of the operation, placement the implants, closure of the wound, and placement of the sterile bandage. I attest to the content of the Intraoperative Record and any orders documented therein. Any exceptions are noted below.
[2021-10-04] MEDS ORDERED: ePHEDrine sulfate 50 MG/ML AMP IV PRN ×2 (15:38→16:10)
[2021-10-04] MEDS ORDERED: ATROPINE SULFATE 0.1 MG/ML 10ML SYR IV PRN ×2 (15:38→16:10)
[2021-10-04] MEDS ORDERED: ONDANSETRON INJ 2 MG/ML 2 ML VIAL IV PRN (15:38)
[2021-10-04] MEDS ORDERED: diphenhydrAMINE Capsule 25 MG CAP PO PRN (15:38)
[2021-10-04] MEDS: fentaNYL citrate 100 MCG/2 ML VIAL IV PRN ×4 (15:42→15:57)
--- NOTE | 2021-10-04 15:44 | XRay Report ---
XR knee LT 1 or 2V routine CLINICAL HISTORY: Postoperative evaluation. COMPARISON: Knee radiographs November 25, 2020. FINDINGS: Alignment of the total left knee arthroplasty is anatomic. No periprosthetic fracture or u nexpected radiopaque foreign bodies are present. There are skin ana. IMPRESSION: Expected findings following total left knee arthroplasty. ACT 112: Negative or not required by law. Electronically signed by: Herb Shelton M.D. 10/04/2021 3:43 PM
[2021-10-04] MEDS ORDERED: KETOROLAC 30 MG/ML VIAL IV PRN (16:10)
[2021-10-04] MEDS ORDERED: HYDROmorphone INJ 1 MG/ML SYRINGE IV PRN (16:10)
[2021-10-04] MEDS ORDERED: ACETAMINOPHEN 1,000 MG/100 ML VIAL IV STA (16:10)
[2021-10-04] MEDS ORDERED: ACETAMINOPHEN 1000 MG/100 ML IV IV ONE (16:15)
[2021-10-04] MEDS ORDERED: KETOROLAC 30 MG/ML VIAL ONE (16:16)
[2021-10-04] MEDS ORDERED: traMADol HCL 50 MG TABLET PO PRN (16:56)
[2021-10-04] MEDS ORDERED: METOCLOPRAMIDE HCL INJ 5 MG/ML 2 ML VIAL IV PRN (16:56)
[2021-10-04] MEDS ORDERED: MAGNESIUM HYDROXIDE SUSP 30 ML UDC PO PRN (16:56)
[2021-10-04] MEDS ORDERED: VANCOMYCIN CONSULT ACTIVE PRN (16:56)
[2021-10-04] MEDS ORDERED: bisacodyL 10 MG SUPP PR PRN (16:56)
[2021-10-04] MEDS ORDERED: ALUMINUM/MAGNESIUM SUSP 30 ML UDC PO PRN (16:56)
[2021-10-04] MEDS ORDERED: NALOXONE HCL 0.4 MG/1 ML VIAL/CARP IV PRN (16:56)
[2021-10-04] MEDS ORDERED: DOCUSATE SODIUM/SENNA 50/8.6MG TAB PO PRN (16:56)
[2021-10-04] MEDS ORDERED: HYDROmorphone INJ 0.5 MG/0.5 ML SYR IV PRN (16:56)
[2021-10-04] MEDS: SODIUM CHLORIDE 0.9% 1000ML 1,000 ML IV SCH (17:14)
[2021-10-04] MEDS: KETOROLAC TROMETHAMINE 15 MG/ML VIAL IV SCH ×2 (17:16→23:08)
[2021-10-04] MEDS: DOCUSATE SODIUM 100 MG CAP PO SCH (20:49)
[2021-10-04] MEDS: CHOLECALCIFEROL 1,000 UNITS 25 MCG TAB PO SCH (20:50)
[2021-10-04] MEDS: ASPIRIN 81 MG ECTAB PO SCH (20:50)
[2021-10-04] MEDS ORDERED: PANTOprazole 40 MG TAB PO SCH (21:00)
[2021-10-04] MEDS ORDERED: CALCIUM CARBONATE 500 MG CHEWABLE TAB PO SCH (21:00)
[2021-10-04] MEDS ORDERED: MONTELUKAST SODIUM 10 MG TABLET PO SCH (21:00)
[2021-10-04] MEDS ORDERED: SENNA 8.6 MG TAB PO SCH (21:00)
[2021-10-04] MEDS: ONDANSETRON INJ 2 MG/ML 2 ML VIAL IV PRN (21:14)
[2021-10-04] MEDS ORDERED: TRANEXAMIC ACID / 0.7% NACL 1,000 MG/100 ML BAG IV SCH (21:15)
[2021-10-04] MEDS: ACETAMINOPHEN 500 MG TAB PO SCH (21:18)
[2021-10-04] MEDS ORDERED: VANCOMYCIN HCL 1,250 MG in SODIUM CHLORIDE 0.9% 250 ML IV SCH (23:00)
[2021-10-05] MEDS: SODIUM CHLORIDE 0.9% 1000ML 1,000 ML IV SCH (02:47)
[2021-10-05] MEDS: ACETAMINOPHEN 500 MG TAB PO SCH (05:45)
[2021-10-05] MEDS: KETOROLAC TROMETHAMINE 15 MG/ML VIAL IV SCH ×2 (05:45→11:33)
--- NOTE | 2021-10-05 06:25 | Anesthesiology Progress Note ---
Date of Service October 05, 2021 Anesthesia Post Procedure Vital Signs Vital Signs: Temp Pulse Pulse Resp BP Pulse Ox O2 Del Method 10/05/21 02:29 97.7 F 71 16 106/61 98 Nasal Cannula 10/04/21 19:35 Nasal Cannula 10/04/21 22:49 97.3 F L 77 16 118/70 98 Nasal Cannula 10/04/21 20:00 97.7 F 73 18 100/64 99 Nasal Cannula 10/04/21 19:00 97.7 F 80 16 98/65 L 93 Nasal Cannula 10/04/21 18:29 Nasal Cannula 10/04/21 18:00 97.6 F 74 16 131/76 99 Nasal Cannula 10/04/21 17:28 97.5 F L 73 18 118/70 99 Room Air 10/04/21 17:00 97.5 F L 74 16 132/71 97 Nasal Cannula 10/04/21 16:35 73 13 135/64 97 Nasal Cannula 10/04/21 16:25 74 20 131/74 100 Nasal Cannula 10/04/21 16:15 76 12 137/74 100 Nasal Cannula 10/04/21 16:05 97.5 F L 78 12 134/67 100 Nasal Cannula 10/04/21 15:55 73 12 137/63 100 Oxymask 10/04/21 15:45 74 12 139/69 100 Oxymask 10/04/21 15:35 77 14 145/67 H 100 Oxymask 10/04/21 15:25 83 12 139/59 L 97 Oxymask 10/04/21 15:17 96.8 F L 84 18 141/74 H 98 Oxymask 10/04/21 10:35 97.9 F 78 20 179/81 H 99 Room Air O2 Flow Rate 10/05/21 02:29 2.0 10/04/21 19:35 2 10/04/21 22:49 2.0 10/04/21 20:00 2.0 10/04/21 19:00 2.0 10/04/21 18:29 2 10/04/21 18:00 2 10/04/21 17:28 10/04/21 17:00 2 10/04/21 16:35 2 10/04/21 16:25 2 10/04/21 16:15 2 10/04/21 16:05 2 10/04/21 15:55 4 10/04/21 15:45 4 10/04/21 15:35 6 10/04/21 15:25 8 10/04/21 15:17 10 10/04/21 10:35 Pain Intensity Left Knee: Pain Intensity: 4 Transfer of Care Handoff Completed per policy Notes Mental Status: alert / awake / arousable and participated in evaluation Patient Amnestic to Procedure: Yes Nausea / Vomiting: adequately controlled Pain: adequately controlled Airway Patency, RR, SpO2: stable & adequate BP & HR: stable & adequate Hydration State: stable & adequate Anesthetic Complications: no major complications apparent and Pt Satisfied with anesthetic care
[2021-10-05] MEDS ORDERED: LEVOTHYROXINE SODIUM 100 MCG TABLET PO SCH (06:30)
[2021-10-05] MEDS: ONDANSETRON INJ 2 MG/ML 2 ML VIAL IV PRN (07:37)
--- NOTE | 2021-10-05 07:50 | Progress Notes ---
DATE OF SERVICE: 10/05/2021. SUBJECTIVE: A 76-year-old white female postoperative day 1 from a left knee replacement. She is doi ng pretty well. She had a pretty good night. Hoping to go home. No chest pain or shortness of kavin th. Not feeling dizzy or lightheaded. OBJECTIVE: VITAL SIGNS: Temperature 36.5. Vital signs are stable. GENERAL: Physical examination shows a pleasant, elderly female. She is sitting up in bed, looks rel atively comfortable. She is awake, alert, and oriented. LUNGS: Clear to auscultation. HEART: Regular rate and rhythm. ABDOMEN: Soft, nontender, nondistended. EXTREMITIES: Grossly neurovascularly intact except as follows: Examination of the left lower extrem ity reveals dressing to be clean, dry and intact. She can dorsiflex and plantarflex her foot appropr iately. She is neurologically intact. LABORATORY DATA: Labs are pending. ASSESSMENT: A 76-year-old white female postoperative day 1 from a left knee replacement, doing reaso nably well. Pain is controlled. She is neurologically intact. PLAN: 1. DVT prophylaxis includes thigh-high TEDs, SCDs, and aspirin twice a day. 2. PT, OT, weightbear as tolerated. Left total knee protocol. 3. Pain control, doing okay with current pain regimen. 4. Disposition: Plan to discharge to home with some home health later today if she does okay in the rapy. Job ID: [id number]
[2021-10-05] MEDS ORDERED: dexAMETHasone 10 MG in SYRINGE 0 ML IV SCH (08:00)
[2021-10-05] MEDS: CHOLECALCIFEROL 1,000 UNITS 25 MCG TAB PO SCH (08:52)
[2021-10-05] MEDS: ASPIRIN 81 MG ECTAB PO SCH (08:52)
[2021-10-05] MEDS: DOCUSATE SODIUM 100 MG CAP PO SCH (08:52)
[2021-10-05] MEDS ORDERED: LORATADINE 10 MG TAB PO SCH (09:00)
[2021-10-05] MEDS ORDERED: MULTIVITAMIN TAB PO SCH (09:00)
[2021-10-05] MEDS ORDERED: CYANOCOBALAMIN (B-12) 500 MCG TABLET PO SCH (09:00)
[2021-10-05] MEDS ORDERED: ASCORBIC ACID 500 MG TAB PO SCH (09:00)
[2021-10-05] MEDS ORDERED: METOPROLOL SUCC 25MG EXT REL TAB PO SCH (09:00)
[2021-10-05 09:13] LABS: Hematocrit (blood only) 32.6 % (34.1-44.9); Mean Corpuscular Hemoglobin 31.2 pg (25.0-34.0); Mean Corpuscular Hgb Conc 33.7 g/dL (32.0-36.0); Mean Corpuscular Volume 92.4 fL (80.0-100.0); Platelet Count 224 K/uL (130-400); RDW Coefficient of Variation 13.3 % (11.5-14.5); RDW Standard Deviation 45.2 fL (36.4-46.3); Red Blood Count 3.53 M/uL (3.93-5.22); White Blood Count 8.62 K/ul (4.8-10.8)
[2021-10-05 09:48] LABS: BUN Creatinine Ratio 16.4 (10-20); Calcium 8.7 mg/dl (8.5-10.1); Creatinine Clr Calc Pharmacy 59.3 ml/min; Est GFR (African American) 91.4 ml/min; Est GFR (Non-African American) 78.9 ml/min; Potassium 3.9 mmol/L (3.5-5.1)
[2021-10-09] MEDS ORDERED: LEVOTHYROXINE SODIUM 50 MCG TABLET PO SCH (06:30)
== END 2021-10-05 15:43 | disposition home health service (06) ==
LOC: 3W 09:52 → ASU 09:52

== ENCOUNTER 2022-01-16 11:47 | Observation (INO) ==
--- NOTE | 2022-01-16 12:11 | Emergency Department Note ---
Impression & Plan Phlegmasia cerulea dolens of left lower extremity ED Provider Note Name: PUMA HERNANDEZ Age: 76 Sex: F Arrives Via: Walk-In Informant: Patient ED Provider: Krunal Mena MD Chief Complaint: Left leg pain and swelling Impression: As per impressions above Medical Decision Makin-year-old female with a remote history of a DVT in the left arm as well as a significant family history of DVT/PE. She arrives for evaluation of rapidly worsening swelling and pain of her left leg. On examination the leg is bluish and significantly larger than the right. She does not have any evidence of compartment syndrome though it is clearly uncomfortable to her. She has pulses bilateral legs though it is slightly decreased on the left side. She does have cap refill and movement of the foot and toes. Given recent surgery a few months ago and then travel about a month ago and an ultrasound of the left leg was immediately obtained. Meanwhile labs and monitoring were resulted. D-dimer is severely elevated consistent with concern for DVT. She has no shortness of breath, chest pain, hypoxia and her tachycardia I do not feel that this is consistent with PE at this time. Ultrasound is clearly positive for a common femoral DVT occlusive including multiple other veins in the left leg. No contraindications to heparin she denies any GI bleeds, headaches, head injuries or other concerning or contraindicating findings symptoms story. She is agreeable to starting heparin with the understanding of bleeding with this. Started IV heparin and hospitalist was consulted for further management given the degree of occlusive disease noted and the need for close monitoring in the setting of someone I could easily develop massive PE. Prior Medical Record and Triage/Nursing Notes reviewed by Me Additional history obtained from chart Differentials:DVT, arterial occlusion, musculoskeletal, infection, joint effusion, trauma, lymphedema, idiopathic, CHF, as well as other pathologies. Vital Signs: reviewed and remarkable for no significant abnormalities Interventions: Heparin IV declines pain medications Labs:Reviewed and remarkable for elevated D-dimer Imaging:Ultrasound left leg reveals extensive occlusive disease in the femoral vein down as per radiology Consults:Kaushal Aleman hospitalist for further management Plan: Disposition:Hospitalization. Condition: Good History of Present Illness: 68-year-old female arrives for evaluation of left leg pain. Patient notes that she had left knee replacement 4 months ago and has been doing well. She did go to [place] on vacation a month ago and on returning noticed some mild calf pain had an ultrasound at that point which revealed no DVT. States she was doing well until yesterday when she started noticing left leg pain. Gradually worsening overnight. This morning increasing leg pain primarily in the calf region worse with movement. Associated with discoloration of the leg. At rest pain is mildly improved. Much worse with movement. She took Tylenol prior to arrival and states that did help with the pain. No falls, trauma, injuries. She does have a history of a DVT in her left arm for which she was on full dose aspirin for several years. She currently is on aspirin 81 mg daily she takes no other blood thinners. She does note a familial history of DVT/PE. Denies any falls, trauma, injuries. She is noting some mild shortness of breath with exertion but believes that is more due to the pain as opposed to actually feeling short of breath. She denies any chest pain, syncope, near syncope, nausea, vomiting, abdominal pain, back pain, headache, neck pain, other concerning signs or symptoms. She had no recent bleeding or bruising. She said no recent head injury. She has had no black or bloody stools. She denies any significant history of stomach ulcerations or GI bleed but does note some GERD history. ROS: See above HPI for pertinent positives & negatives. A total of 10 systems reviewed and were otherwise negative. Past Medical History:See Below Past Surgical History:See Below Family History:See Below Social History:See Below Home Medications:See Below Allergies:See Below Vitals:Blood Pressure: 125/66, Pulse 97, RR 18, T 36.8C, O2 96% on RA Physical Exam: GENERAL: Patient is uncomfortable appearing and in moderate distress. EYES: No scleral icterus, unremarkable pupils. ENT: Mucous membranes moist, no nasal congestion. NECK: No masses appreciated, nomeningismus, trachea is midline. RESPIRATORY: No dyspnea. Clear to auscultation and equal bilaterally. No wheeze, no rhonchi. CARDIOVASCULAR: Regular rate and rhythm.No murmurs, rubs, gallops appreciated. GASTROINTESTINAL: Abdomen soft, non-tender, no peritonitis.Bowel sounds positive.No masses appreciated. BACK: No midline tenderness, no CVA tenderness EXTREMITIES: Swollen bluish left lower leg from mid thigh to foot. There is good warmth with mildly decreased cap refill. Significantly swollen compared to the right leg. There is a faint pulse in the left foot but is palpable but not quite to the easily palpable status of the right foot. Does have movement of both extremities though notes pain with movement of left leg. NEUROLOGIC: Alert and oriented, no acute motor or sensory deficits, no focal weakness, cranial nerves grossly intact. SKIN: No rash, no jaundice, no diaphoresis. PSYCH: Appropriate GCS: 15 ED Course: Times/Reassessments: Patient stable no distress she has no shortness of breath, chest pain nor near syncopal symptoms. She is agreeable to hospitalization but does note that she very much needs to be discharged by tomorrow afternoon given she wishes to go [place]. Critical Care: I have personally spent 40 minutes of critical care time in the direct management of this patient. Large clot burden DVT causing cerulea dolens of left leg at high risk PE requiring IV heparin. This was a life/limb threatening event. This 40 minutes is in excess of all separately billable procedures. Krunal Mena MD Past Med/Surg History Medical History Asthma Stable, no inhalers Bicuspid aortic valve Mild per cardio records 08/2020 cardiac MRI shows partial fusion of left and right coronary cusps of the AV. No significant . Mild AR. Encounter for pre-operative examination Gastroesophageal reflux disease Well controlled and stable History of anesthesia problem Slow to wake History of COVID-19 03/2021, PCR, not hospitalized, "not very sick">resolved. History of DVT (deep vein thrombosis) LUE and L Lower arm(2012) > post-op Secondary to PICC line per records History of kidney stones No recent issues History of pancreatitis Around 2009 - had jaundice and pancreatitis (occurred shortly after fredy) Hypertension Hypothyroidism H/o of hyperthyroidism- s/p radioactive iodine ablation- resulted in hypothyroidism Obesity Ocular migraine Osteoporosis Pulmonary artery aneurysm Under surveillance by [facility] (Dr. Robledo), cardiac MRI on 09/07/20 Secondary to pulmonary valve stenosis. Stable - per 2017 and 2020 cardiac MRIs Pulmonary valve stenosis Mid Spinal stenosis Chronic back pain Transient ischemic attack (TIA) Occurred over 30 years ago- s/p hysterectomy- had been on high doses of estrogen- had three TIAs- no issues since Surgical History H/O parathyroidectomy Secondary to hyperparathyroidism History of bowel resection Secondary to diverticulitis History of cardiac catheterization 2018, [place]> no angiographic evidence of CAD; f/u Dr. Indu Prescott, [place] History of cataract surgery History of colonoscopy History of cystoscopy History of dilation and curettage History of ERCP History of hernia repair History of non-cataract eye surgery History of removal of ureteral stent History of right knee joint replacement 10/04/20 [facility] History of ureter stent Hx of cholecystectomy Hx of total hysterectomy with removal of both tubes and ovaries Hx of tubal ligation Family History Brother Lung cancer Son Diabetes Father Stroke Mother Heart disease Hypertension Myocardial infarction Unknown Allergies Asthma Deafness Denies family history of Ovarian cancer Prostate cancer Breast cancer Colorectal cancer Social History Smoking Status: Never smoker Second Hand Exposure: No; Hx Alcohol Use: No Hx Substance Use: No Preferred Language: Malay Communication Ability: Effective Visual Impairment: Limited Hearing Ability: Normal Quality Control Coordinator Required: No Beliefs That Will Affect Care: None marital status: / Current Living Situation: Alone and Family Current Living Situation Comment: son currently living with pt current occupational status: retired How many Children do You have: 1 Feels Safe at Home: Yes Childhood Exposure to Second-Hand Smoke: Yes caffeine: Yes Dental Care, Regularly: Yes Physical Activity Frequency: Does not Exercise Seatbelt Use: always Sunscreen Use: No Assistive Devices: Cane, Walker and Wheelchair Allergies Allergies Allergy/AdvReac Type Severity Reaction Status Date / Time latex Allergy Severe Rash, Verified 01/03/22 15:34 redness Penicillins Allergy Severe Respiratory Verified 01/03/22 15:34 difficulties adhesive Allergy Intermediate Redness, Verified 01/03/22 15:34 itchiness morphine Allergy Intermediate Itching, Verified 01/03/22 15:34 hives prednisone AdvReac Intermediate Elevated Verified 01/03/22 15:34 BP, hives tramadol AdvReac Intermediate Flushing Verified 01/03/22 15:34 bacitracin AdvReac Unknown "Doesn't Verified 01/03/22 15:34 help" neomycin AdvReac Unknown "Doesn't Verified 01/03/22 15:34 help" polymyxin B AdvReac Unknown "Doesn't Verified 01/03/22 15:34 help" Home Meds Home Medications Medication Instructions Recorded Confirmed ascorbic acid (vitamin C) 500 mg 500 mg PO QAM 02/28/18 01/16/22 tablet cholecalciferol (vitamin D3) 50 2,000 unit PO BID 02/28/18 01/16/22 mcg (2,000 unit) tablet cyanocobalamin (vitamin B-12) 500 500 mcg PO QAM 02/28/18 01/16/22 mcg tablet loratadine 10 mg tablet 10 mg PO QAM 02/28/18 01/16/22 calcium carbonate 500 mg calcium 500 mg PO HS 04/07/19 01/16/22 (1,250 mg) tablet (Calcium 500) metoprolol succinate 25 mg 25 mg PO QAM 09/13/21 01/16/22 tablet,extended release 24 hr omeprazole 20 mg capsule,delayed 40 mg PO HS 09/13/21 01/16/22 release clindamycin HCl 300 mg capsule 300 mg PO DIRECTED PRN PRIOR TO 12/27/21 01/16/22 DENTAL APPT. acetaminophen 500 mg capsule 1,000 mg PO ONCE Pain 01/03/22 01/16/22 aspirin 81 mg tablet,delayed 81 mg PO DAILY 01/03/22 01/16/22 release (Cedrick Low Dose Aspirin) Previous Rx's Medication Instructions Recorded montelukast 10 mg tablet 10 mg PO HS #90 tabs 03/29/21 levothyroxine 100 mcg tablet See Rx Instructions .Route 12/30/21 .COMPLEX #90 tabs apixaban 5 mg tablet (Eliquis) 10 mg PO BID 30 days #120 tabs 01/17/22 Results & Data (ED) Vital Signs Vital Signs - 24 hr 01/16/22 11:53 Temperature 36.8 C Temperature Source Temporal Artery Scan Pulse Rate 97 H Respiratory Rate 18 Blood Pressure 125/66 Blood Pressure Mean 85 Pulse Oximetry 96 Oxygen Delivery Method Room Air Sepsis Recent Fever Within 48 Hours No Sepsis New/Unexplained Change in Mental Status No Sepsis Action Taken by Nursing No Action Required Laboratory Data Result diagrams: 01/17/22 03:15 01/17/22 03:15 Lab Results 01/16/22 01/16/22 01/16/22 Range/Units 12:15 12:15 12:15 WBC 9.17 (4.8-10.8) K/ul RBC 4.28 (3.93-5.22) M/uL Hgb 13.0 (12.0-16.0) g/dl Hct 38.6 (34.1-44.9) % MCV 90.2 (80.0-100.0) fL MCH 30.4 (25.0-34.0) pg MCHC 33.7 (32.0-36.0) g/dL RDW Std Deviation 43.5 (36.4-46.3) fL RDW Coeff of Rudolph 13.2 (11.5-14.5) % Plt Count 225 (130-400) K/uL MPV 9.8 (9.4-12.3) fL Immature Gran % (Auto) 0.3 % Neut % (Auto) 74.4 % Lymph % (Auto) 13.6 % [place] % (Auto) 9.9 % Eos % (Auto) 1.1 % Baso % (Auto) 0.7 % Neut # (Auto) 6.82 H (1.4-6.5) K/uL Lymph # (Auto) 1.25 (1.2-3.4) K/uL [place] # (Auto) 0.91 H (0.24-0.82) K/uL Eos # (Auto) 0.10 (0-0.50) K/uL Baso # (Auto) 0.06 (0-0.2) K/uL Immature Gran # (Auto) 0.03 H (0.00-0.02) K/uL PT 10.5 (9.0-12.0) Seconds INR 1.0 (0.9-1.1) APTT 28.9 (21.0-31.0) Seconds PTT Ratio 1.1 D-Dimer 9220 H* (0-500) ug/L FEU Sodium 133 L (136-145) mmol/L Potassium 3.7 (3.5-5.1) mmol/L Chloride 100 (98-107) mmol/L Carbon Dioxide 26 (21-32) mmol/L Anion Gap 7 (3-11) BUN 15 (6-23) mg/dl Creatinine 0.87 (0.6-1.2) mg/dl Est Cr Clr Drug Dosing 49.0 ml/min Est GFR ( Amer) 74.0 ml/min Est GFR (Non-Af Amer) 63.8 ml/min BUN/Creatinine Ratio 17.2 (10-20) Glucose 125 H (70-99(Fasting)) mg/dl Calcium 10.4 H (8.5-10.1) mg/dl Magnesium 1.8 (1.7-2.4) mg/dl Total Bilirubin 0.6 (0.2-1.0) mg/dl Direct Bilirubin 0.0 (0-0.2) mg/dl AST 16 (13-39) U/L ALT 12 (7-52) U/L Alkaline Phosphatase 103 (34-104) U/L Total Creatine Kinase 30 (26-192) U/L Total Protein 7.9 (6.0-8.3) gm/dl Albumin 4.5 (3.4-5.0) gm/dl SARS-CoV-2, RNA, NAAT (NEGATIVE) 01/16/22 Range/Units 13:09 WBC (4.8-10.8) K/ul RBC (3.93-5.22) M/uL Hgb (12.0-16.0) g/dl Hct (34.1-44.9) % MCV (80.0-100.0) fL MCH (25.0-34.0) pg MCHC (32.0-36.0) g/dL RDW Std Deviation (36.4-46.3) fL RDW Coeff of Rudolph (11.5-14.5) % Plt Count (130-400) K/uL MPV (9.4-12.3) fL Immature Gran % (Auto) % Neut % (Auto) % Lymph % (Auto) % [place] % (Auto) % Eos % (Auto) % Baso % (Auto) % Neut # (Auto) (1.4-6.5) K/uL Lymph # (Auto) (1.2-3.4) K/uL [place] # (Auto) (0.24-0.82) K/uL Eos # (Auto) (0-0.50) K/uL Baso # (Auto) (0-0.2) K/uL Immature Gran # (Auto) (0.00-0.02) K/uL PT (9.0-12.0) Seconds INR (0.9-1.1) APTT (21.0-31.0) Seconds PTT Ratio D-Dimer (0-500) ug/L FEU Sodium (136-145) mmol/L Potassium (3.5-5.1) mmol/L Chloride (98-107) mmol/L Carbon Dioxide (21-32) mmol/L Anion Gap (3-11) BUN (6-23) mg/dl Creatinine (0.6-1.2) mg/dl Est Cr Clr Drug Dosing ml/min Est GFR ( Amer) ml/min Est GFR (Non-Af Amer) ml/min BUN/Creatinine Ratio (10-20) Glucose (70-99(Fasting)) mg/dl Calcium (8.5-10.1) mg/dl Magnesium (1.7-2.4) mg/dl Total Bilirubin (0.2-1.0) mg/dl Direct Bilirubin (0-0.2) mg/dl AST (13-39) U/L ALT (7-52) U/L Alkaline Phosphatase (34-104) U/L Total Creatine Kinase (26-192) U/L Total Protein (6.0-8.3) gm/dl Albumin (3.4-5.0) gm/dl SARS-CoV-2, RNA, NAAT NEGATIVE (NEGATIVE) Administered Medications Discontinued Medications Apixaban (Apixaban 5 Mg Tablet) 10 mg PO BID [facility] Stop: 01/23/22 21:01 Last Admin: 01/17/22 10:45 Dose: 10 mg Documented By: ARAM Heparin Sodium (Porcine) (Heparin Sod (Porcine) 1000 Unit/Ml) 5,000 units IV NOW ONE Stop: 01/16/22 13:16 Last Admin: 01/16/22 13:42 Dose: 5,000 units Documented By: JET Co-signed By: JOY Heparin Sodium/Dextrose (Heparin Sodium/Dextrose) 25,000 units in 500 mls @ 20 mls/hr IV .Q24H ARISTIDES; Protocol Stop: 02/15/22 13:14 Last Titration: 01/17/22 09:23 Dose: 0 units/hr, 0 mls/hr Documented By: ARAM Co-signed By: [id number] Titration: 01/16/22 21:12 Dose: 1,000 units/hr, 20 mls/hr Documented By: ABHISHEK Co-signed By: ADDISON Titration: 01/16/22 19:03 Dose: 1,050 units/hr, 21 mls/hr Documented By: ABHISHEK Co-signed By: LUIGI Admin: 01/16/22 13:44 Dose: 1,050 units/hr, 21 mls/hr Documented By: JET Co-signed By: JOY Levothyroxine Sodium (Levothyroxine Sodium 100 Mcg Tablet) 100 mcg PO [email or web address] [facility] Stop: 02/16/22 06:29 Last Admin: 01/17/22 05:40 Dose: 100 mcg Documented By: ABHISHEK Metoprolol Succinate (Metoprolol Succ 25mg Ext Rel Tab) 25 mg PO [facility] Stop: 02/16/22 08:59 Last Admin: 01/17/22 07:15 Dose: 25 mg Documented By: ARAM Miscellaneous (Stop Heparin Drip Order) 1 each N/A ONE ONE Stop: 01/17/22 10:16 Last Admin: 01/17/22 10:36 Dose: 1 each Documented By: ARAM Montelukast Sodium (Montelukast Sodium 10 Mg Tablet) 10 mg PO [facility] Stop: 02/15/22 20:59 Last Admin: 01/16/22 20:52 Dose: 10 mg Documented By: ABHISHEK Pantoprazole Sodium (Pantoprazole 40 Mg Tab) 40 mg PO [facility] Stop: 02/16/22 08:59 Last Admin: 01/17/22 07:14 Dose: 40 mg Documented By: ARAM Discharge Plan Visit Data Chief Complaint: Swelling/Edema to Extremity Stated Complaint: PAINS IN LEG AND SWELLING ED Provider: Krunal Mena Discharge Problem: Phlegmasia cerulea dolens of left lower extremity Patient Disposition: Admitted As Inpatient Discharge Instructions Interventions: ED Discharge Assessment Last Done: 01/16/22 15:16
[2022-01-16 12:29] LABS: Basophils # (auto) 0.06 K/uL (0-0.2); Basophils % (auto) 0.7 %; Eosinophils % (auto) 1.1 %; Hematocrit (blood only) 38.6 % (34.1-44.9); Immature Granulocytes # (auto) 0.03 K/uL (0.00-0.02); Immature Granulocytes % (auto) 0.3 %; Lymphocytes # (auto) 1.25 K/uL (1.2-3.4); Lymphocytes % (auto) 13.6 %; Mean Corpuscular Hemoglobin 30.4 pg (25.0-34.0); Mean Corpuscular Hgb Conc 33.7 g/dL (32.0-36.0); Mean Corpuscular Volume 90.2 fL (80.0-100.0); Mean Platelet Volume 9.8 fL (9.4-12.3); Monocytes # (auto) 0.91 K/uL (0.24-0.82); Monocytes % (auto) 9.9 %; Neutrophils # (auto) 6.82 K/uL (1.4-6.5); Neutrophils % (auto) 74.4 %; Platelet Count 225 K/uL (130-400); RDW Coefficient of Variation 13.2 % (11.5-14.5); RDW Standard Deviation 43.5 fL (36.4-46.3); Red Blood Count 4.28 M/uL (3.93-5.22); White Blood Count 9.17 K/ul (4.8-10.8)
[2022-01-16 12:49] LABS: Partial Thromboplastin Ratio 1.1; Partial Thromboplastin Time 28.9 Seconds (21.0-31.0); Prothrombin Time 10.5 Seconds (9.0-12.0)
[2022-01-16 12:50] LABS: Albumin Level 4.5 gm/dl (3.4-5.0); BUN Creatinine Ratio 17.2 (10-20); Bilirubin,Total 0.6 mg/dl (0.2-1.0); Calcium 10.4 mg/dl (8.5-10.1); Est GFR (Non-African American) 63.8 ml/min; Magnesium 1.8 mg/dl (1.7-2.4); Potassium 3.7 mmol/L (3.5-5.1); Total Protein 7.9 gm/dl (6.0-8.3)
[2022-01-16] MEDS ORDERED: Heparin IV Adult Wt-Based Standard WITH Bolus Protocol IV STA (12:56)
[2022-01-16 13:01] LABS: D Dimer 9220 ug/L FEU (0-500)
--- NOTE | 2022-01-16 13:02 | Ultrasound Report ---
LEFT LOWER EXTREMITY VENOUS DOPPLER HISTORY: left leg swelling, discoloration COMPARISON STUDY: None. FINDINGS: Occlusive thrombus within the left common femoral vein and superficial femoral vein. The po pliteal vein is patent. There is thrombus within the proximal greater saphenous vein. The calf veins were not well visualized. IMPRESSION: Occlusive DVT within the left lower extremity as described above. ACT 112: Negative or not required by law. Electronically signed by: eJff Membreno M.D. 01/16/2022 1:01 PM
[2022-01-16] MEDS ORDERED: HEPARIN SOD (PORCINE) 1000 UNIT/ML IV ONE ×2 (13:12→13:15)
[2022-01-16] MEDS ORDERED: HEPARIN SODIUM/DEXTROSE 25,000 UNITS/500 ML BAG IV SCH (13:15)
--- NOTE | 2022-01-16 13:36 | History & Physical Report ---
Date of Service January 16, 2022 Assessment & Plan (1) Left leg DVT: Plan: Doppler was negative on 12/21, but on 01/16 now has LLE DVT in "left common femoral vein and superficial femoral vein". Some veins not well visualized. - Start with heparin gtt, transition to DOAC tomorrow - Patient admitted largely due to pain with ambulation. Will get PT evaluation tomorrow, but patient also noting she wants to be discharged tomorrow to vote. (2) Hypothyroidism: Plan: TSH was 2.3 in 06/2021. No signs/symptoms of hypo-/hyperthyroidism. - Continue home Synthroid (3) Hypertension: Plan: BP was 125/65. - Continue home metoprolol (4) Gastroesophageal reflux disease: Plan: - Continue PPI (5) Congenital heart disease: Plan: Variety of issues. Follow with a [place] adult congenital nursing home manager (Teresa Grady). 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 - No inpatient needs FULL CODE - The patient herself could not determine code status for me. Despite reassurances, phrasing multiple ways, she continually told me "I don't know." to any question of code status. I informed her the default would have to be full code as I cannot make her DNR/DNI or not have a code status. She would not respond to this, just saying, "I don't know." and saying she would have to speak with her children. I reassured her this was a great idea and that we would adjust her code status to suit her wishes at any time. History of Present Illness Primary Care Provider: Teodoro Maria MD 76yo F w/ hx of left upper arm DVT in ~2011 who presents with a large left leg DVT from "left common femoral vein and superficial femoral vein". She had a left TKA on 10/04/[address] Swartz and has had a fair amount of swelling in the left leg since surgery. She actually had a Doppler done on 12/21 for some calf pain and swelling, but this was read as negative. However, yesterday, she reports that she woke up and had increased swelling in the entire left leg and had increased pain in the calf and thigh when she ambulated. She does not have any pain at present while lying in the bed ("I have 0 pain."), but does report substantial pain when walking, then the pain lasts for at least 30 minutes after lying back down. Allergies Allergy/AdvReac Type Severity Reaction Status Date / Time latex Allergy Severe Rash, Verified 01/03/22 15:34 redness Penicillins Allergy Severe Respiratory Verified 01/03/22 15:34 difficulties adhesive Allergy Intermediate Redness, Verified 01/03/22 15:34 itchiness morphine Allergy Intermediate Itching, Verified 01/03/22 15:34 hives prednisone AdvReac Intermediate Elevated Verified 01/03/22 15:34 BP, hives tramadol AdvReac Intermediate Flushing Verified 01/03/22 15:34 bacitracin AdvReac Unknown "Doesn't Verified 01/03/22 15:34 help" neomycin AdvReac Unknown "Doesn't Verified 01/03/22 15:34 help" polymyxin B AdvReac Unknown "Doesn't Verified 01/03/22 15:34 help" Home Medications Medication Instructions Recorded Confirmed Type ascorbic acid (vitamin C) 500 mg 500 mg PO QAM 02/28/18 01/03/22 History tablet cholecalciferol (vitamin D3) 50 2,000 unit PO BID 02/28/18 01/03/22 History mcg (2,000 unit) tablet cyanocobalamin (vitamin B-12) 500 500 mcg PO QAM 02/28/18 01/03/22 History mcg tablet loratadine 10 mg tablet 10 mg PO QAM 02/28/18 01/03/22 History calcium carbonate 500 mg calcium 500 mg PO HS 04/07/19 01/03/22 History (1,250 mg) tablet (Calcium 500) montelukast 10 mg tablet 10 mg PO HS #90 tabs 03/29/21 01/03/22 Rx metoprolol succinate 25 mg 25 mg PO QAM 09/13/21 01/03/22 History tablet,extended release 24 hr omeprazole 20 mg capsule,delayed 40 mg PO HS 09/13/21 01/03/22 History release Bijan Hose #1 ea 12/23/21 01/03/22 Rx clindamycin HCl 300 mg capsule 300 mg PO DIRECTED PRN PRIOR TO 12/27/2112/11 History DENTAL APPT. levothyroxine 100 mcg tablet See Rx Instructions .Route 12/30/21 01/03/22 Rx .COMPLEX #90 tabs acetaminophen 500 mg capsule 1,000 mg PO ONCE Pain 01/03/22 History aspirin 81 mg tablet,delayed 81 mg PO DAILY 01/03/22 History release (Cedrick Low Dose Aspirin) Past Med/Surg History Medical History Asthma Stable, no inhalers Bicuspid aortic valve Mild per cardio records 08/2020 cardiac MRI shows partial fusion of left and right coronary cusps of the AV. No significant . Mild AR. Encounter for pre-operative examination Gastroesophageal reflux disease Well controlled and stable History of anesthesia problem Slow to wake History of COVID-19 03/2021, PCR, not hospitalized, "not very sick">resolved. History of DVT (deep vein thrombosis) LUE and L Lower arm(2012) > post-op Secondary to PICC line per records History of kidney stones No recent issues History of pancreatitis Around 2009 - had jaundice and pancreatitis (occurred shortly after fredy) Hypertension Hypothyroidism H/o of hyperthyroidism- s/p radioactive iodine ablation- resulted in hypothyroidism Obesity Ocular migraine Osteoporosis Pulmonary artery aneurysm Under surveillance by [facility] (Dr. Robledo), cardiac MRI on 09/07/20 Secondary to pulmonary valve stenosis. Stable - per 2017 and 2020 cardiac MRIs Pulmonary valve stenosis Mid Spinal stenosis Chronic back pain Transient ischemic attack (TIA) Occurred over 30 years ago- s/p hysterectomy- had been on high doses of estrogen- had three TIAs- no issues since Surgical History H/O parathyroidectomy Secondary to hyperparathyroidism History of bowel resection Secondary to diverticulitis History of cardiac catheterization 2018, [place]> no angiographic evidence of CAD; f/u Dr. Indu Prescott, [place] History of cataract surgery History of colonoscopy History of cystoscopy History of dilation and curettage History of ERCP History of hernia repair History of non-cataract eye surgery History of removal of ureteral stent History of right knee joint replacement 10/04/20 [facility] History of ureter stent Hx of cholecystectomy Hx of total hysterectomy with removal of both tubes and ovaries Hx of tubal ligation Family History Brother Lung cancer Son Diabetes Father Stroke Mother Heart disease Hypertension Myocardial infarction Unknown Allergies Asthma Deafness Denies family history of Ovarian cancer Prostate cancer Breast cancer Colorectal cancer Social History Smoking Status: Never smoker Second Hand Exposure: No; Hx Alcohol Use: No Hx Substance Use: No Preferred Language: Ukrainian Communication Ability: Effective Visual Impairment: Limited Hearing Ability: Normal Blending Supervisor Required: No Beliefs That Will Affect Care: None marital status: / Current Living Situation: Family Current Living Situation Comment: son currently living with pt current occupational status: retired How many Children do You have: 1 Feels Safe at Home: Yes Childhood Exposure to Second-Hand Smoke: Yes caffeine: Yes Dental Care, Regularly: Yes Physical Activity Frequency: Does not Exercise Seatbelt Use: always Sunscreen Use: No Assistive Devices: Cane and Walker Review of Systems Review of Systems: All systems reviewed & are unremarkable except as noted in HPI & below Physical Exam Constitutional: WD/WN, vitals as above Eyes: EOM intact bilaterally; no conjunctival abnormality ENMT: external ear and nose normal, oropharynx normal Neck: trachea midline, no thyromegaly normal visual inspection Respiratory: normal respiratory effort, lungs clear to auscultation no respiratory distress Cardiovascular: RRR, no murmur, no edema Gastrointestinal (Abdomen): Inspection/Auscultation: abdomen normal to inspection; abdomen not distended Musculoskeletal: no cyanosis or clubbing, extremities motor strength 5/5 Left TKA scar well-healed. Left leg is more swollen with some mild purplish discoloration; however, has palpable DP pulse, normal light touch, and normal movement in foot/toes Skin: no rashes, warm and dry Neurologic: moves all extremities and awake Psychiatric: Orientation: alert, oriented to person and cooperative Results & Data Results & Data ([facility]) Vital Signs (Past 12 Hours) Vital Signs Temp Pulse Resp BP Pulse Ox O2 Del Method 01/16/22 11:53 36.8 C 97 H 18 125/66 96 Room Air Code Status & VTE Plan VTE Prophylaxis Plan VTE Prophylaxis will be ordered: Yes PG Care Time/CCT Total # of Minutes Spent Total Time Spent with Patient: Total time spent is greater than 50% in coordination of care (as documented) at patient's floor/unit and/or counseling patient: Coding Level of Care Code INT OBSERVATION CARE 70M LVL 3 Diagnoses Left leg DVT I82.402 Hypothyroidism E03.9 Hypertension I10 Gastroesophageal reflux disease K21.9 Congenital heart disease Q24.9
[2022-01-16] MEDS ORDERED: ONDANSETRON INJ 2 MG/ML 2 ML VIAL IV PRN (15:55)
[2022-01-16] MEDS ORDERED: ACETAMINOPHEN 325 MG TAB PO PRN (15:55)
[2022-01-16] MEDS ORDERED: INFLUENZA VACCINE HIGH DOSE PF 65+ 0.7 ML SYR IM ONE (16:13)
[2022-01-16 20:44] LABS: Partial Thromboplastin Ratio 2.9
[2022-01-16] MEDS ORDERED: MONTELUKAST SODIUM 10 MG TABLET PO SCH (21:00)
[2022-01-16 21:10] LABS: Partial Thromboplastin Time 78.6 Seconds (21.0-31.0)
[2022-01-17 04:25] LABS: Hematocrit (blood only) 35.6 % (34.1-44.9); Hemoglobin 12.1 g/dl (12.0-16.0); Mean Corpuscular Hemoglobin 30.6 pg (25.0-34.0); Mean Corpuscular Volume 89.9 fL (80.0-100.0); Mean Platelet Volume 10.4 fL (9.4-12.3); Platelet Count 219 K/uL (130-400); RDW Coefficient of Variation 13.2 % (11.5-14.5); RDW Standard Deviation 43.5 fL (36.4-46.3); Red Blood Count 3.96 M/uL (3.93-5.22); White Blood Count 7.25 K/ul (4.8-10.8)
[2022-01-17 04:41] LABS: Calcium 9.6 mg/dl (8.5-10.1); Creatinine Clr Calc Pharmacy 51.9 ml/min; Est GFR (African American) 81.8 ml/min; Est GFR (Non-African American) 70.6 ml/min; Magnesium 1.9 mg/dl (1.7-2.4); Potassium 3.6 mmol/L (3.5-5.1)
[2022-01-17 04:55] LABS: Partial Thromboplastin Ratio 2.3
[2022-01-17 04:58] LABS: Partial Thromboplastin Time 63.7 Seconds (21.0-31.0)
[2022-01-17] MEDS ORDERED: LEVOTHYROXINE SODIUM 100 MCG TABLET PO SCH (06:30)
--- NOTE | 2022-01-17 07:39 | Hospitalist Progress Note ---
Date of Service January 17, 2022 Assessment & Plan (1) Left leg DVT: (2) Hypothyroidism: (3) Hypertension: (4) Gastroesophageal reflux disease: (5) Congenital heart disease: Plan Veronica is a 76 year old female with history of L arm DVT (2011, 2/2 Picc), TKA (09/2021), asthma, GERD< HTN, hypothyroidism, pulmonary aneurysm, and prior TIA who presented for evaluation of worsening left leg swelling and left calf pain when walking. She was found to have a LLE DVT and was admitted for anticoagulation. 01/17: Patient is feeling well today, she notes that her left leg swelling is ongoing, but not worsened. She denies any chest pain or shortness of breath at present. She endorses mild shortness of breath with activity at home, but it has not been worsened (she has no chest pain or leg pain with activity otherwise and does not require head elevation during sleep). She notes that in September she had a knee replacement and her leg 'has not been the same' since the surgery. She has had swelling surrounding the knee since the surgery. In December she began to have worsening swelling that extended up her thing, and when she developed pain in her calf with walking she presented to the ER in December, ultrasound at this time was negative for DVT.Patient states that she 'knew something was wrong' at this time. Patient yesterday for the same symptoms of worsening swelling and pain when she walks in her left calf. She was found to have DVT and was admitted this time for anticoagulation. Patient has a history of DVT in her left upper extremity 2/2 placement of a pic line post surgery in 2011. She received anticoagulation at this time, she recalls being on a shot. She has never had a pulmonary embolism of blood clot that was not a/w surgery. She currently takes 81 mg of Aspirin daily. Left leg DVT: - LLE Doppler: Occlusive thrombus within the L common femoral vein and superficial femoral vein. The popliteal vein is patent. There is thrombus within the proximal greater saphenous vein. The calf veins were not well visualized. - Heparin drip initiated on admission --- Transition from IV Heparin to PO Eliquis (10 mg twice daily for 7 days followed by 5 mg twice daily.) [CKD2 normal Cr] --- Continue for at least 3 months (provoked DVT w/ hx of provoked DVT) Hypothyroidism: - TSH was 2.3 in 06/2021. - No signs/symptoms of hypo-/hyperthyroidism. - Continue home Synthroid Hypertension: - BP was 125/65 - Continue home Metoprolol 25 mg PO QAM - No additional antihypertensive Gastroesophageal reflux disease: - Continue PPI Congenital heart disease: - Follow with a [place] adult congenital chief nursing executive (Teresa Grady). 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 She was found to have a LLE DVT and was admitted for anticoagulation. 01/17: Patient is feeling well today, she notes that her left leg swelling is ongoing, but not worsened. She denies any chest pain or shortness of breath at present. She endorses mild shortness of breath with activity at home, but it has not been worsened (she has no chest pain or leg pain with activity otherwise and does not require head elevation during sleep). She notes that in September she had a knee replacement and her leg 'has not been the same' since the surgery. She has had swelling surrounding the knee since the surgery. In December she began to have worsening swelling that extended up her thing, and when she developed pain in her calf with walking she presented to the ER in December, ultrasound at this time was negative for DVT.Patient states that she 'knew something was wrong' at this time. Patient yesterday for the same symptoms of worsening swelling and pain when she walks in her left calf. She was found to have DVT and was admitted this time for anticoagulation. Patient has a history of DVT in her left upper extremity 2/2 placement of a pic line post surgery in 2011. She received anticoagulation at this time, she recalls being on a shot. She has never had a pulmonary embolism of blood clot that was not a/w surgery. She currently takes 81 mg of Aspirin daily. Review of Systems Review of Systems: As per HPI Physical Exam Physical Exam: Gen: NAD, alert, interactive HEENT: Supple, no LAD, no thyromegaly, no JVD Resp:Non-labored, scattered mild expiratory wheezing, otherwise CTAB CV:RRR, normal S1/S2, systolic murmur at RUSB Abd: Soft, non-distended, no TTP, normoactive bowels, no masses Extr: 2+ dp bilaterally, sensation intact, 1+ pitting edema from left ankle to mid thigh (edema L > R), deep calf pain on L, Niya sign negative Skin: Appreciable scar over left knee w/o erythema Results & Data Results & Data ([facility]) Vital Signs (Past 12 Hours) Vital Signs Temp Pulse Pulse Resp BP Pulse Ox O2 Del Method 01/17/22 07:06 78 01/17/22 03:00 36.8 C 76 20 134/67 96 Room Air 01/16/22 23:42 37 C 78 20 129/72 97 Room Air 01/16/22 22:13 90 Diagnostic Findings Laboratory Results WBC 7.25 K/ul (4.8-10.8) 01/17/22 03:15 RBC 3.96 M/uL (3.93-5.22) 01/17/22 03:15 Hgb 12.1 g/dl (12.0-16.0) 01/17/22 03:15 Hct 35.6 % (34.1-44.9) 01/17/22 03:15 MCV 89.9 fL (80.0-100.0) 01/17/22 03:15 MCH 30.6 pg (25.0-34.0) 01/17/22 03:15 MCHC 34.0 g/dL (32.0-36.0) 01/17/22 03:15 RDW Std Deviation 43.5 fL (36.4-46.3) 01/17/22 03:15 RDW Coeff of Rudolph 13.2 % (11.5-14.5) 01/17/22 03:15 Plt Count 219 K/uL (130-400) 01/17/22 03:15 MPV 10.4 fL (9.4-12.3) 01/17/22 03:15 Immature Gran % (Auto) 0.3 % 01/16/22 12:15 Neut % (Auto) 74.4 % 01/16/22 12:15 Lymph % (Auto) 13.6 % 01/16/22 12:15 Mclean % (Auto) 9.9 % 01/16/22 12:15 Eos % (Auto) 1.1 % 01/16/22 12:15 Baso % (Auto) 0.7 % 01/16/22 12:15 Neut # (Auto) 6.82 K/uL (1.4-6.5) H 01/16/22 12:15 Lymph # (Auto) 1.25 K/uL (1.2-3.4) 01/16/22 12:15 Mclean # (Auto) 0.91 K/uL (0.24-0.82) H 01/16/22 12:15 Eos # (Auto) 0.10 K/uL (0-0.50) 01/16/22 12:15 Baso # (Auto) 0.06 K/uL (0-0.2) 01/16/22 12:15 Immature Gran # (Auto) 0.03 K/uL (0.00-0.02) H 01/16/22 12:15 PT 10.5 Seconds (9.0-12.0) 01/16/22 12:15 INR 1.0 (0.9-1.1) 01/16/22 12:15 APTT 63.7 Seconds (21.0-31.0) H* 01/17/22 03:15 PTT Ratio 2.3 01/17/22 03:15 D-Dimer 9220 ug/L FEU (0-500) H* 01/16/22 12:15 Sodium 136 mmol/L (136-145) 01/17/22 03:15 Potassium 3.6 mmol/L (3.5-5.1) 01/17/22 03:15 Chloride 103 mmol/L (98-107) 01/17/22 03:15 Carbon Dioxide 25 mmol/L (21-32) 01/17/22 03:15 Anion Gap 8 (3-11) 01/17/22 03:15 BUN 16 mg/dl (6-23) 01/17/22 03:15 Creatinine 0.80 mg/dl (0.6-1.2) 01/17/22 03:15 Est Cr Clr Drug Dosing 51.9 ml/min 01/17/22 03:15 Est GFR ( Amer) 81.8 ml/min 01/17/22 03:15 Est GFR (Non-Af Amer) 70.6 ml/min 01/17/22 03:15 BUN/Creatinine Ratio 20.0 (10-20) 01/17/22 03:15 Glucose 104 mg/dl (70-99(Fasting)) H 01/17/22 03:15 Calcium 9.6 mg/dl (8.5-10.1) 01/17/22 03:15 Magnesium 1.9 mg/dl (1.7-2.4) 01/17/22 03:15 Total Bilirubin 0.6 mg/dl (0.2-1.0) 01/16/22 12:15 Direct Bilirubin 0.0 mg/dl (0-0.2) 01/16/22 12:15 AST 16 U/L (13-39) 01/16/22 12:15 ALT 12 U/L (7-52) 01/16/22 12:15 Alkaline Phosphatase 103 U/L (34-104) 01/16/22 12:15 Total Creatine Kinase 30 U/L (26-192) 01/16/22 12:15 Total Protein 7.9 gm/dl (6.0-8.3) 01/16/22 12:15 Albumin 4.5 gm/dl (3.4-5.0) 01/16/22 12:15 SARS-CoV-2, RNA, NAAT NEGATIVE (NEGATIVE) 01/16/22 13:09 Impressions Venous Doppler Study 01/16/22 12:07 LEFT LOWER EXTREMITY VENOUS DOPPLER FINDINGS: Occlusive thrombus within the left common femoral vein and superficial femoral vein. The popliteal vein is patent. There is thrombus within the proximal greater saphenous vein. The calf veins were not well visualized. IMPRESSION: Occlusive DVT within the left lower extremity as described above. Resident Activity Tracking Resident Involvement: Resident Care Provided Care Provided: Adult [facility]
[2022-01-17] MEDS ORDERED: APIXABAN 5 MG TABLET PO SCH (09:00)
[2022-01-17] MEDS ORDERED: METOPROLOL SUCC 25MG EXT REL TAB PO SCH (09:00)
[2022-01-17] MEDS ORDERED: PANTOprazole 40 MG TAB PO SCH (09:00)
[2022-01-17] MEDS ORDERED: STOP HEPARIN DRIP ORDER ONE (10:15)
--- NOTE | 2022-01-17 11:35 | Discharge Summary ---
Date of Service January 17, 2022 Admission HPI Per Admitting Provider 76yo F w/ hx of left upper arm DVT in ~2011 who presents with a large left leg DVT from "left common femoral vein and superficial femoral vein". She had a left TKA on 10/04/[address] Swartz and has had a fair amount of swelling in the left leg since surgery. She actually had a Doppler done on 12/21 for some calf pain and swelling, but this was read as negative. However, yesterday, she rep orts that she woke up and had increased swelling in the entire left leg and had increased pain in the calf and thigh when she ambulated. She does not have any pain at present while lying in the bed ("I have 0 pain."), but does report substantial pain when walking, then the pain lasts for at least 30 minutes after lying back down. Admission Exam Per Admitting Provider Constitutional: WD/WN, vitals as above Eyes: EOM intact bilaterally; no conjunctival abnormality ENMT: external ear and nose normal, oropharynx normal Neck: trachea midline, no thyromegaly normal visual inspection Respiratory: normal respiratory effort, lungs clear to auscultation no respiratory distress Cardiovascular: RRR, no murmur, no edema Gastrointestinal (Abdomen): Inspection/Auscultation: abdomen normal to inspection; abdomen not distended Musculoskeletal: no cyanosis or clubbing, extremities motor strength 5/5 Left TKA scar well-healed. Left leg is more swollen with some mild purplish discoloration; however, has palpable DP pulse, normal light touch, and normal movement in foot/toes Skin: no rashes, warm and dry Neurologic: moves all extremities and awake Psychiatric: Orientation: alert, oriented to person and cooperative Principal Diagnosis LLE DVT Discharge Exam Gen: NAD, alert, interactive HEENT: Supple, no LAD, no thyromegaly, no JVD Resp:Non-labored, scattered mild expiratory wheezing, otherwise CTAB CV:RRR, normal S1/S2, systolic murmur at RUSB Abd: Soft, non-distended, no TTP, normoactive bowels, no masses Extr: 2+ dp bilaterally, sensation intact, 1+ pitting edema from left ankle to mid thigh (edema L > R), deep calf pain on L, Niya sign negative Skin: Appreciable scar over left knee w/o erythema Discharge Data Allergies Allergy/AdvReac Type Severity Reaction Status Date / Time latex Allergy Severe Rash, Verified 01/03/22 15:34 redness Penicillins Allergy Severe Respiratory Verified 01/03/22 15:34 difficulties adhesive Allergy Intermediate Redness, Verified 01/03/22 15:34 itchiness morphine Allergy Intermediate Itching, Verified 01/03/22 15:34 hives prednisone AdvReac Intermediate Elevated Verified 01/03/22 15:34 BP, hives tramadol AdvReac Intermediate Flushing Verified 01/03/22 15:34 bacitracin AdvReac Unknown "Doesn't Verified 01/03/22 15:34 help" neomycin AdvReac Unknown "Doesn't Verified 01/03/22 15:34 help" polymyxin B AdvReac Unknown "Doesn't Verified 01/03/22 15:34 help" Consultations 01/16/22 13:05 ED Decision to Admit Stat Ordered Studies 01/16/22 12:07 US venous doppler LE LT Stat Laboratory Results WBC 7.25 K/ul (4.8-10.8) 01/17/22 03:15 RBC 3.96 M/uL (3.93-5.22) 01/17/22 03:15 Hgb 12.1 g/dl (12.0-16.0) 01/17/22 03:15 Hct 35.6 % (34.1-44.9) 01/17/22 03:15 MCV 89.9 fL (80.0-100.0) 01/17/22 03:15 MCH 30.6 pg (25.0-34.0) 01/17/22 03:15 MCHC 34.0 g/dL (32.0-36.0) 01/17/22 03:15 RDW Std Deviation 43.5 fL (36.4-46.3) 01/17/22 03:15 RDW Coeff of Rudolph 13.2 % (11.5-14.5) 01/17/22 03:15 Plt Count 219 K/uL (130-400) 01/17/22 03:15 MPV 10.4 fL (9.4-12.3) 01/17/22 03:15 Immature Gran % (Auto) 0.3 % 01/16/22 12:15 Neut % (Auto) 74.4 % 01/16/22 12:15 Lymph % (Auto) 13.6 % 01/16/22 12:15 [place] % (Auto) 9.9 % 01/16/22 12:15 Eos % (Auto) 1.1 % 01/16/22 12:15 Baso % (Auto) 0.7 % 01/16/22 12:15 Neut # (Auto) 6.82 K/uL (1.4-6.5) H 01/16/22 12:15 Lymph # (Auto) 1.25 K/uL (1.2-3.4) 01/16/22 12:15 [place] # (Auto) 0.91 K/uL (0.24-0.82) H 01/16/22 12:15 Eos # (Auto) 0.10 K/uL (0-0.50) 01/16/22 12:15 Baso # (Auto) 0.06 K/uL (0-0.2) 01/16/22 12:15 Immature Gran # (Auto) 0.03 K/uL (0.00-0.02) H 01/16/22 12:15 PT 10.5 Seconds (9.0-12.0) 01/16/22 12:15 INR 1.0 (0.9-1.1) 01/16/22 12:15 APTT 63.7 Seconds (21.0-31.0) H* 01/17/22 03:15 PTT Ratio 2.3 01/17/22 03:15 D-Dimer 9220 ug/L FEU (0-500) H* 01/16/22 12:15 Sodium 136 mmol/L (136-145) 01/17/22 03:15 Potassium 3.6 mmol/L (3.5-5.1) 01/17/22 03:15 Chloride 103 mmol/L (98-107) 01/17/22 03:15 Carbon Dioxide 25 mmol/L (21-32) 01/17/22 03:15 Anion Gap 8 (3-11) 01/17/22 03:15 BUN 16 mg/dl (6-23) 01/17/22 03:15 Creatinine 0.80 mg/dl (0.6-1.2) 01/17/22 03:15 Est Cr Clr Drug Dosing 51.9 ml/min 01/17/22 03:15 Est GFR ( Amer) 81.8 ml/min 01/17/22 03:15 Est GFR (Non-Af Amer) 70.6 ml/min 01/17/22 03:15 BUN/Creatinine Ratio 20.0 (10-20) 01/17/22 03:15 Glucose 104 mg/dl (70-99(Fasting)) H 01/17/22 03:15 Calcium 9.6 mg/dl (8.5-10.1) 01/17/22 03:15 Magnesium 1.9 mg/dl (1.7-2.4) 01/17/22 03:15 Total Bilirubin 0.6 mg/dl (0.2-1.0) 01/16/22 12:15 Direct Bilirubin 0.0 mg/dl (0-0.2) 01/16/22 12:15 AST 16 U/L (13-39) 01/16/22 12:15 ALT 12 U/L (7-52) 01/16/22 12:15 Alkaline Phosphatase 103 U/L (34-104) 01/16/22 12:15 Total Creatine Kinase 30 U/L (26-192) 01/16/22 12:15 Total Protein 7.9 gm/dl (6.0-8.3) 01/16/22 12:15 Albumin 4.5 gm/dl (3.4-5.0) 01/16/22 12:15 SARS-CoV-2, RNA, NAAT NEGATIVE (NEGATIVE) 01/16/22 13:09 Impressions Venous Doppler Study 01/16/22 12:07 LEFT LOWER EXTREMITY VENOUS DOPPLER HISTORY: left leg swelling, discoloration COMPARISON STUDY: None. FINDINGS: Occlusive thrombus within the left common femoral vein and superficial femoral vein. The popliteal vein is patent. There is thrombus within the proximal greater saphenous vein. The calf veins were not well visualized. IMPRESSION: Occlusive DVT within the left lower extremity as described above. Hospital Course (1) Left leg DVT: (2) Hypothyroidism: (3) Hypertension: (4) Gastroesophageal reflux disease: (5) Congenital heart disease: (6) Pulmonary artery aneurysm: James Martin is a 76 year old female with history of L Arm DVT (following surgery in 2011), TKA (10/04/21), asthma, GERD, HTN, hypothyroidism, prior TIA, and pulmonary aneurysm who prsented for evaluation of worsening left leg swelling with calf pain. Patient was admitted for anticoagulation. LLE DVT - LLE Doppler: Occlusive thrombus within the left common femoral vein and superficial femoral vein. The popliteal vein is patent. There is thrombus within the proximal greater saphenous vein. The calf veins were not well visualized. - Patient stated on Heparin drip on admission - Transitioned to oral DOAC (Eliquis) in AM --- Continue Eliquis 10 mg PO BID for 7 days followed by 5 mg PO BID indefinitely (given provoked DVT), known hx of provoked DVT Hypothyroidism - Continue home Synthroid, no sx of thyroid disease HTN - Chronic, stable, continue home Metoprolol 25 mg PO Daily Gastroesophageal reflux disease - Continue PPI Congenital Heart Disease - Follows with Registered Representative @ [facility]) - Known bicuspid aortic valve w/ mild stenosis and mild/mod regurgitation as well as pulmonary arterial aneurysm (a/w pulmonary stenosis) FEN: Regular, heart healthy Code status: Full Code DVT ppx: Eliquis (therapeutic) Isolation: None Dispo:Home Total Time Total Time Spent Total Time Spent (In Minutes): See attending attestation Discharge Plan Discharge Items Patient Disposition: Home - Self-Care Reason For Visit: LLE DVT Discharge Diagnosis: LLE DVT Activity: Per Instructions section Non-emergency contact: Primary Care Provider Call non-emergency contact if: you have any medication questions and your symptoms worsen Follow-up/Referrals: Teodoro Maria MD [Primary Care Provider] - 01/24/22 3:45 pm Diet: Heart Healthy Addtl Attending Provider Instructions: You were admitted to the hospital for a blood clot in your left leg. You were treated with IV anticoagulation (Heparin) at first and ultimately transitioned to oral anticoagulation (Eliquis). You will be sent home with this medication. A discharge summary will be sent to your primary care physician to ensure continuity of care. Please bring this discharge summary with you to your next office appointment so that your provider can review it at that time. Follow-up appointments: - Make a follow-up appointment with your PCP within the next week. It is very important that you follow up with them shortly after discharge from the hospital. We have requested a follow-up appointment with your primary care physician within one week of discharge. Please call their office if you do not hear from them. Medications: - Your medication list has been reviewed and reconciled upon discharge to ensure accuracy and continuity of care. An updated list of all your medications is included with your hospital discharge paperwork. Please review this list closely, and make note of any changes. - We sent a new medication called Eliquis. Please take 10 mg twice daily for 7 days. After the first 7 days, transition to 5 mg twice daily indefinitely. Please discuss the duration with your PCP at your follow up appointment. - If you have any issues filling these prescriptions, please call [phone] and ask to leave a message for Dr. Serrano. - Take your medications as instructed; do not skip a dose of your medicines. Make sure all of your doctors know every medicine you are taking (including ilhn-gez-ddhstkh medicines, vitamins, and supplements). - Call your primary care provider before taking any new medicines (including over- the-counter medicines, vitamins, and supplements), because some of these may interact with your current medications, or may make your symptoms worse. - Tell your primary care provider if you cannot afford your medications. Contact your Primary Care Provider if you experience: - Increased swelling - Leg Pain - Difficulty following your treatment plan or taking medications Call 911 or go to the emergency department if you experience: - Sudden, severe abdominal pain or nausea/vomiting - Severe chest pain, or chest pain that radiates (moves) to your jaw or arm - Sudden, severe shortness of breath or difficulty breathing It was a pleasure to be a part of your care, Dr. Vimal Serrano Pending Studies at Discharge: No Stand-Alone Forms: My [facility], Smoking Cessation Medications and DC Order Prescriptions: New Eliquis 5 mg Tablet 10 mg PO BID 30 Days Qty: 120 0RF Rx Instructions: Take 10 mg (2 tablets) by mouth twice a day for 7 days After the first 7 days, take 5 mg (1 tablet) by mouth twice a day indefinitely. Continued montelukast 10 mg tablet 10 mg PO HS Qty: 90 3RF levothyroxine 100 mcg tablet See Rx Instructions .ROUTE .COMPLEX Qty: 90 1RF Rx Instructions: 100 mcg orally ;100 mcg PO 1 tablet 6 days a week and 1/2 tablet on Sunday aspirin [Cedrick Low Dose Aspirin] 81 mg tablet,delayed release (DR/EC) 81 mg PO DAILY Rx Instructions: Take to prevent blood clots. acetaminophen 500 mg capsule 1,000 mg PO ONCE calcium carbonate [Calcium 500] 500 mg calcium (1,250 mg) Tablet 500 mg PO HS cyanocobalamin (vitamin B-12) 500 mcg Tablet 500 mcg PO QAM ascorbic acid (vitamin C) 500 mg Tablet 500 mg PO QAM loratadine 10 mg Tablet 10 mg PO QAM cholecalciferol (vitamin D3) 2,000 unit Tablet 2,000 unit PO BID omeprazole 20 mg capsule,delayed release(DR/EC) 40 mg PO HS metoprolol succinate 25 mg tablet extended release 24 hr 25 mg PO QAM clindamycin HCl 300 mg capsule 300 mg PO DIRECTED PRN (Reason: PRIOR TO DENTAL APPT.) Rx Instructions: TAKE TWO CAPSULES ONE HOUR PRIOR TO DENTAL WORK Discharge Orders: Discharge Order (Routine); Ordered 01/17/22 Ordered By: Vimal Serrano Admission Data Admit Date/Time: 01/16/22 13:29 Attending Provider: David Cunningham Admit Provider: Ramiro York Primary Care Provider: Teodoro Maria Other Providers: Ramiro York Other Interventions: Discharge Summary Assessment (RN) Last Done: 01/17/22 14:32 Supervising Physician Co-Signing Physician Notes I personally examined the patient and verified all arcos points of history and exam, discussed case, and agree with decision making with Dr Serrano. Would like to go home. Leg still swollen. Pain better. Notes that leg swelling has really been persistent since surgerydefinitely a bit worse the last few days leading up to admission related to DVT, but certainly by no means all acute. Vitals noted, in general she is awake and alert pleasant no distress. HEENT normocephalic atraumatic mucous membranes moist. Breathing unlabored no accessory muscle use good effort. Left lower extremity with diffuse 2+ edema Acute DVTseems to be mostly the risk factor of venous stasis, she did have a knee surgery, but it was several months agoso I suspect venous stasis and a degree of reduced mobility. That said as well, she has formed a clot once before a decade agoand by both criteria probably would benefit from indefinite anticoagulation. For now full dosing, after 3 or 4 months if her leg swelling is improved and overall the acuity of the situation appears to be improved, probably could reduce to more prophylaxis dosing. Safe/stable for home. As it relates to her venous stasis itselfdiscussed extensively, and discussed the critical role of movement in managing her venous stasis. After discussing some hurdles that she faces, she did admit that she probably should be moving more, and I applauded this. After several attempts with the pharmacy and coverage methods, Vinay ended up being affordable at about $15 a month.
--- NOTE | 2022-01-17 18:56 | Billing Data ---
Date of Service January 17, 2022 Coding Level of Care Code 12331 OBS Care - Discharge
--- NOTE | 2022-01-17 18:56 | Billing Data ---
Date of Service January 17, 2022 Coding Level of Care Code 57304 OBS Care - Discharge
[2022-01-22] MEDS ORDERED: LEVOTHYROXINE SODIUM 50 MCG TABLET PO SCH (06:30)
== END 2022-01-17 15:39 | disposition home or self-care (01) ==
LOC: 2W 11:47 → ED 11:47 → SUATTDRO 13:29 → 2W 15:16